=== PATIENT | male | born 1940 | race Caucasian/White ===

== ENCOUNTER → 2019-09-18 12:19 | Outpatient (BNVA) | payer MEDICARE, SELFPAY | PROVIDERS: Family Provider Nurse Practitioner Family; PCP Nurse Practitioner Family; Visit Provider Nurse Practitioner Family | DX: E11.9 Type 2 diabetes mellitus without complications (principal) | CPT/HCPCS: 80053; 80061; 83036; 84443; 85025 ==

== ENCOUNTER → 2020-03-07 10:28 | Outpatient (BNVA) | payer MEDICARE, SELFPAY | PROVIDERS: Family Provider Nurse Practitioner Family; PCP Nurse Practitioner Family; Visit Provider Nurse Practitioner Family | DX: E11.9 Type 2 diabetes mellitus without complications (principal); N40.1 Benign prostatic hyperplasia with lower urinary tract symptoms; R07.9 Chest pain, unspecified; Z12.5 Encounter for screening for malignant neoplasm of prostate | CPT/HCPCS: 80053; 80061; 81000; 82043; 83036; 85025; G0103 ==

== ENCOUNTER 2020-04-14 09:13 | Outpatient (CLI) | payer MEDICARE, SELFPAY ==
--- NOTE | 2020-04-14 10:04 | ECG_ITS ---
[facility] Test Date: 2020-04-14 Pat Name: Jorge Moore Department: Room: Gender: Male Rail Track Layer: : 1940 Requested By: Akosua Kennedy Order Number: [id number] Malone MD: Akosua Kennedy M.D. Interpretive Statements NAME OF STUDY: LEXISCAN SESTAMIBI STRESS TEST INDICATION: Chest Pain PROCEDURE: At the baseline, the blood pressure was 165/88 mmHg, oxygen saturation 98% with a heart rate of 83 bpm. The electrocardiogram showed normal sinus rhythm, normal axis with nonspecific ST depression and T wave inversion in lead II, 3, aVF V3 to V6. The Lexiscan was infused over a period of 20 seconds. A total of 0.4 milligrams of Lexiscan was infused. The stress phase was continued for a total of 5 minutes. Heart rate at the end of the stress phase was 97 bpm, oxygen saturation 96% with a blood pressure of 155/63 mmHg. The EKG at the peak infusion revealed no significant EKG changes. Sestamibi was injected 20 seconds after the Lexiscan infusion. Blood pressure at the end of the recovery phase was 155/65 mmHg, oxygen saturation 97% with a heart rate of 98 beats per minute. CONCLUSION: 1. Equivocal EKG changes with LexiScan infusion given baseline ST-T wave changes. 2. No LexiScan induced chest pain or cardiac arrhythmia. 3. Normal blood pressure and heart rate response. 4. Sestamibi/sestamibi perfusion scan pending; see separate report. Electronically Signed On 04-15-2020 14:06:24 TIP STRETCHER by Akosua Kennedy M.D. [id number]
--- NOTE | 2020-04-14 10:04 | NMCV_ITS ---
NM tammy perf SPECT r/s* [id number] Jorge Moore Age: 79 Gender: M : 1940 Exam Date: 04/14/2020 10:04 Ordering Phys: Akosua Kennedy MD ([email or web address]) Technologist: SHELBY Moody Exam Location: [facility] Indications: Chest pain STRESS TEST Please see separate stress test report in [facility] for full findings IMAGE PROTOCOL Rest/Stress 1 Lexiscan Day Radiopharmaceutical Dose (mCi) Administration Site Administered by Rest: Tc-99m 10.9 IV SHELBY Moody Sestamibi Stress:Tc-99m 32.8 IV SHELBY Moody Sestamibi Rest: 14-Apr-2020 60 Discovery 630 Stress: 14-Apr-2020 45 Discovery 630 0.4mg Lexiscan. Images obtained in supine and prone position. SPECT RESULTS Technical Quality: Good Raw Data Analysis: Normal Image Corrections: No attenuation or motion correction applied Summed Stress Score: 0 Summed Rest Score: 0 Summed Difference Score: 0 PERFUSION FINDINGS Small sized perfusion abnormality of mild severity of basal inferior and basal infero-septal gallo on stress images. FUNCTIONAL RESULTS (calculated via Gated SPECT) Stress Image LV EF (%): 84 Stress EDV (mL):49 TID: 0.91 Stress ESV (mL):8 FUNCTIONAL FINDINGS: The left ventricle is normal in size. Transient Ischemia Dilatation of 0.91. There is normal left ventricular systolic function. The left ventricular ejection fraction is normal with a value of 84%. There is hyperdynamic left ventricular global systolic function. There is hyperdynamic left ventricular wall thickening. IMPRESSIONS 1. Small sized reversible perfusion abnormality of mild severity of basal inferior and basal infero-septal gallo. 2. This likely represent attenuation artifact, however small area of ischemia in right coronary artery territory cannot be completely excluded. Clinical correlation is advised. 3. Overall left ventricular systolic function is normal without regional wall motion abnormalities. 4. The left ventricular ejection fraction is normal with a value of 84%. 5. No prior similar studies to compare. Akosua Kennedy MD (Electronically Signed) Final Date: 17 April 2020 20:43 S
[2020-04-14 10:05] VITALS: BMI 23.8
[2020-04-14] MEDS: regadenoson 0.4 Mg/5 ml Syringe IVP (11:56)
[2020-04-14 12:59] VITALS: BP 151/64; PULSE 99
--- NOTE | 2020-04-14 14:15 | USCV_ITS ---
Jorge Moore Age: 79 Gender: M : 1940 Exam Date: 04/14/2020 10:02 Ordering Phys: Akosua Knenedy MD ([email or web address]) Technologist: Alejandro Lewis Exam Location: [facility] [place] Indication: STENOSIS Risk Factors: Previous Vascular Surgery: Right Brachial BP: / Left Brachial BP: / Right Left Velocity (cm/s) Spectral Plaque Velocity (cm/s) Spectral Plaque Syst/Diast Broadening Syst/Diast Broadening 98.10/ 14.30 Prox CCA 77.20 / 15.40 87.10/ 17.60 Mid CCA 72.80 / 14.30 82.40/ 20.60 Hetro Distal CCA 82.70 / 18.70 Hetro 61.80/ 11.60 Hetro Prox ICA 88.20 / 21.00 Hetro 68.10/ 15.20 Mid ICA 79.80 / 18.50 86.00/ 27.80 Distal ICA 79.80 / 21.00 74.30 ECA 144.40 0.88 ICA/CCA 1.07 Antegrade Vertebral Antegrade 42.10/ 9.00 cm/s 60.50/ 10.10 cm/s Tri Subclavian Tri 45.70 91.60 FINDINGS Mild to moderate heterogeneous plaques at the bifurcations and proximal internal carotid arteries bilaterally Intimal thickening in the common carotid arteries bilaterally. Antegrade flow in the vertebral arteries bilaterally. Normal Doppler flow velocity in the right external carotid artery. Elevated Doppler flow velocity in the left external carotid artery CONCLUSIONS Mild to moderate heterogeneous plaques at the bifurcations and proximal internal carotid arteries bilaterally suggesting 16 to 49% gnosis. Elevated Doppler flow velocity in the left external carotid artery may suggest hemodynamically significant stenosis. Compared to the study from 09/08/2012, there may not be a significant change Dr Debi Vaughn MD [facility] (Electronically Signed) Final Date: 15 April 2020 14:02 S
== END 2020-04-14 09:14 | disposition home or self-care (01) ==
LOC: CDL 09:20
PROVIDERS: PCP Nurse Practitioner Family; Visit Provider Nurse Practitioner Family
DX: R07.9 Chest pain, unspecified (principal); I25.10 Atherosclerotic heart disease of native coronary artery without angina pectoris; I65.23 Occlusion and stenosis of bilateral carotid arteries
CPT/HCPCS: 78452; 93017; 93880; A9500; J2785

== ENCOUNTER → 2020-04-19 12:02 | Outpatient (BNVA) | payer MEDICARE, SELFPAY | PROVIDERS: PCP Nurse Practitioner Family; Visit Provider Nurse Practitioner Family | DX: R79.89 Other specified abnormal findings of blood chemistry (principal) | CPT/HCPCS: 80053; 86705; 86706; 86709; 86803; 87340 ==

== ENCOUNTER 2020-04-21 08:04 | Outpatient (CLI) | payer MEDICARE, SELFPAY ==
--- NOTE | 2020-04-21 08:45 | US_ITS ---
WS: [id number] RIGHT UPPER QUADRANT ULTRASOUND HISTORY: R79.89 - Other specified abnormal findings of blood chemistry COMPARISON: None available. Liver: 16.8 cm in length. Normal size liver. No bile duct dilatation or mass. Gallbladder: Prior cholecystectomy. CBD: 0.7 cm Pancreas: Not visualized. Right kidney: 10.2 cm in length. Normal size and echogenicity. No hydronephrosis or mass. Aorta and IVC: Unremarkable abdominal aorta and IVC. No ascites. US/US liver [id number] IMPRESSION: 1. Prior cholecystectomy. 2. No bile duct dilatation. 3. Pancreas not visualized.
== END 2020-04-21 08:05 | disposition home or self-care (01) ==
LOC: RAD 08:09
PROVIDERS: PCP Nurse Practitioner Family; Visit Provider Nurse Practitioner Family
DX: R79.89 Other specified abnormal findings of blood chemistry (principal); Z90.49 Acquired absence of other specified parts of digestive tract
CPT/HCPCS: 76705

== ENCOUNTER → 2020-04-22 08:32 | Outpatient (BNVA) | payer MEDICARE, SELFPAY | PROVIDERS: PCP Nurse Practitioner Family; Visit Provider Nurse Practitioner Family | DX: R79.89 Other specified abnormal findings of blood chemistry (principal); E11.9 Type 2 diabetes mellitus without complications | CPT/HCPCS: 80053; 80061; 82550; 82728; 82977; 83540; 84466; 86038 ==

== ENCOUNTER → 2020-05-06 08:23 | Outpatient (BNVA) | payer MEDICARE, SELFPAY | PROVIDERS: PCP Nurse Practitioner Family; Visit Provider Nurse Practitioner Family | DX: R79.89 Other specified abnormal findings of blood chemistry (principal) | CPT/HCPCS: 80053; 86618; 86666; 86757 ==

== ENCOUNTER → 2020-06-09 11:07 | Outpatient (BNVA) | payer MEDICARE, SELFPAY | PROVIDERS: PCP Nurse Practitioner Family; Visit Provider Nurse Practitioner Family | DX: R79.89 Other specified abnormal findings of blood chemistry (principal) | CPT/HCPCS: 80076 ==

== ENCOUNTER → 2020-07-28 11:27 | Outpatient (BNVA) | payer MEDICARE, SELFPAY | PROVIDERS: PCP Nurse Practitioner Family; Visit Provider Nurse Practitioner Family | DX: R79.89 Other specified abnormal findings of blood chemistry (principal) | CPT/HCPCS: 80053 ==

== ENCOUNTER → 2020-08-10 12:14 | Outpatient (BNVA) | payer MEDICARE, SELFPAY | PROVIDERS: PCP Nurse Practitioner Family; Visit Provider Nurse Practitioner Family | DX: E11.9 Type 2 diabetes mellitus without complications (principal); R60.9 Edema, unspecified; K59.00 Constipation, unspecified | CPT/HCPCS: 80053; 80061; 83036; 84443; 85025 ==

== ENCOUNTER → 2021-02-01 10:52 | Outpatient (BNVA) | payer MEDICARE, SELFPAY | PROVIDERS: PCP Nurse Practitioner Family; Visit Provider Nurse Practitioner Family | DX: E11.9 Type 2 diabetes mellitus without complications (principal); I10 Essential (primary) hypertension; I25.10 Atherosclerotic heart disease of native coronary artery without angina pectoris; Z95.1 Presence of aortocoronary bypass graft; Z79.899 Other long term (current) drug therapy | CPT/HCPCS: 80053; 80061; 82607; 83036; 84443; 85025 ==

== ENCOUNTER → 2021-03-22 10:32 | Outpatient (BNVA) | payer MEDICARE, SELFPAY | PROVIDERS: PCP Nurse Practitioner Family; Visit Provider Nurse Practitioner Family | DX: E87.5 Hyperkalemia (principal) | CPT/HCPCS: 80048 ==

== ENCOUNTER → 2021-04-06 10:52 | Outpatient (BNVA) | payer MEDICARE, SELFPAY | PROVIDERS: PCP Nurse Practitioner Family; Visit Provider Nurse Practitioner Family | DX: M25.561 Pain in right knee (principal); M25.562 Pain in left knee | CPT/HCPCS: 73562 ==

== ENCOUNTER → 2021-08-14 08:55 | Outpatient (BNVA) | payer MEDICARE, SELFPAY | PROVIDERS: PCP Nurse Practitioner Family; Visit Provider Nurse Practitioner Family | DX: I25.10 Atherosclerotic heart disease of native coronary artery without angina pectoris (principal); R07.9 Chest pain, unspecified; I65.29 Occlusion and stenosis of unspecified carotid artery | CPT/HCPCS: 99214 ==

== ENCOUNTER → 2021-09-13 11:42 | Outpatient (BNVA) | payer MEDICARE, SELFPAY | PROVIDERS: PCP Nurse Practitioner Family; Visit Provider Family Medicine | DX: I10 Essential (primary) hypertension (principal); E11.9 Type 2 diabetes mellitus without complications; Z12.5 Encounter for screening for malignant neoplasm of prostate; N40.1 Benign prostatic hyperplasia with lower urinary tract symptoms; K21.9 Gastro-esophageal reflux disease without esophagitis; H60.90 Unspecified otitis externa, unspecified ear | CPT/HCPCS: 80053; 80061; 83036; 84153; 84443; 85025 ==

== ENCOUNTER → 2021-09-25 08:43 | Outpatient (BNVA) | payer MEDICARE, SELFPAY | PROVIDERS: PCP Nurse Practitioner Family; Visit Provider Family Medicine | DX: R79.89 Other specified abnormal findings of blood chemistry (principal); I10 Essential (primary) hypertension | CPT/HCPCS: 84439; 84443; 84481 ==

== ENCOUNTER → 2022-02-12 12:36 | Outpatient (BNVA) | payer MEDICARE, SELFPAY | PROVIDERS: PCP Nurse Practitioner Family; Visit Provider Internal Medicine Cardiovascular Disease | DX: I65.29 Occlusion and stenosis of unspecified carotid artery (principal); Z87.891 Personal history of nicotine dependence; I10 Essential (primary) hypertension; I25.10 Atherosclerotic heart disease of native coronary artery without angina pectoris; Z95.1 Presence of aortocoronary bypass graft; E11.9 Type 2 diabetes mellitus without complications; Z79.84 Long term (current) use of oral hypoglycemic drugs | CPT/HCPCS: 99213; 99214 ==

== ENCOUNTER → 2022-04-05 09:54 | Outpatient (BNVA) | payer MEDICARE, SELFPAY | PROVIDERS: PCP Nurse Practitioner Family; Visit Provider Nurse Practitioner Family | DX: J32.9 Chronic sinusitis, unspecified (principal); R05.9 Cough, unspecified; J40 Bronchitis, not specified as acute or chronic | CPT/HCPCS: 71046 ==

== ENCOUNTER → 2022-04-09 09:40 | Outpatient (BNVA) | payer MEDICARE, SELFPAY | PROVIDERS: PCP Nurse Practitioner Family; Visit Provider Nurse Practitioner Family | DX: J32.9 Chronic sinusitis, unspecified (principal); R05.9 Cough, unspecified; I10 Essential (primary) hypertension; R91.8 Other nonspecific abnormal finding of lung field; E11.9 Type 2 diabetes mellitus without complications; R60.9 Edema, unspecified; J40 Bronchitis, not specified as acute or chronic; N40.1 Benign prostatic hyperplasia with lower urinary tract symptoms; K21.9 Gastro-esophageal reflux disease without esophagitis | CPT/HCPCS: 80053; 80061; 82607; 83036; 84443; 85025 ==

== ENCOUNTER 2022-05-21 14:17 | Outpatient (CLI) | payer MEDICARE, SELFPAY ==
--- NOTE | 2022-05-21 14:00 | CT_ITS ---
WS: [id number] CT CHEST WITH INTRAVENOUS CONTRAST HISTORY: R05.9 - Cough, unspecified TECHNIQUE: Contiguous 5 mm axial imaging performed on the thorax. Coronal and sagittal reformats are submitted. All CT scans at [facility] use at least one of these dose optimization techniques: automated exposure control; mA and/or kV adjustment per patient size (includes targeted exams where dose is matched to clinical indication); or iterative reconstruction. CONTRAST: Omnipaque 350; 95 mL IV. DLP: 607.67 mGy.cm COMPARISON: Chest radiograph 04/05/2022 Lungs and central airway: Mild centrilobular emphysema. 2 nodules in the RIGHT lower lobe seen on a p rior chest radiograph corresponds to benign calcified granulomas. Mild dependent changes also noted a t the lung bases. No suspicious mass or nodule. Pleura: Normal. No pleural effusion. Heart and pericardium: Normal size heart. No pericardial effusion. Extensive coronary artery calcific ations. Mediastinum and simone: Small mediastinal lymph nodes. RIGHT lymph node is 11 mm and indeterminate. The additional lymph nodes are smaller in size. Vessels: Mild atherosclerosis aorta. At least moderate stenosis involving the origin of the LEFT subc lavian artery. Chest wall and lower neck: Prior CABG. Upper abdomen: Small hiatal hernia. There is marked distention of the stomach with fluid and food pro ducts may be due to recent ingestion of food. Gastroparesis may appear similar. No adrenal mass. 4 mm too small to characterize hypodensity in LEFT lobe of the liver. Prior cholecystectomy. Mild physiol ogic dilatation of the common bile duct. Osseous structures: No destructive process. CT/CT chest w con* [id number] IMPRESSION: 1. Nodules in the RIGHT lower lobe identified by chest radiograph are benign c alcified granulomata. 2. No pneumonia. 3. Prior cholecystectomy. 4. Atherosclerosis aorta. 5. At least moderate stenosis involving the origin of the LEFT subclavian riana ry. 6. Marked distention of the stomach with fluid and food products. May be due t o a recent ingestion or gastroparesis may appear similar.
[2022-05-21] MEDS: iohexol 350 mg/mL 500 mL Btl (per mL) IV (15:20)
== END 2022-05-21 14:18 | disposition home or self-care (01) ==
PROVIDERS: PCP Nurse Practitioner Family; Visit Provider Nurse Practitioner Family
DX: R05.9 Cough, unspecified (principal); R91.8 Other nonspecific abnormal finding of lung field; Z90.49 Acquired absence of other specified parts of digestive tract; I70.0 Atherosclerosis of aorta; I70.8 Atherosclerosis of other arteries
CPT/HCPCS: 71260; Q9967

== ENCOUNTER → 2022-05-30 14:30 | Outpatient (BNVA) | payer MEDICARE, SELFPAY | PROVIDERS: PCP Nurse Practitioner Family; Visit Provider Orthopaedic Surgery | DX: M17.11 Unilateral primary osteoarthritis, right knee (principal) | CPT/HCPCS: 99213 ==

== ENCOUNTER 2022-06-25 08:56 | Outpatient (CLI) | payer MEDICARE, SELFPAY ==
[2022-06-25 09:28] VITALS: BMI 23.6
--- NOTE | 2022-06-25 09:29 | ECG_ITS ---
[facility] Test Date: 2022-06-25 Pat Name: Jorge Moore Department: Room: Gender: Male Cook Relief: : 1940 Requested By: Austin Fuchs Order Number: [id number] Malone MD: Akosua Kennedy M.D. Interpretive Statements NAME OF STUDY: LEXISCAN SESTAMIBI STRESS TEST INDICATION: Knee preop, hx of CAD PROCEDURE: At the baseline, the blood pressure was 142/71 mm Hg with a heart rate of 76 bpm. The electrocardiogram showed sinus rhythm, normal axis with normal ST and T's. ??? The Lexiscan was infused over a period of 20 seconds. A total of 0.4 milligrams of Lexiscan was infused. The stress phase was continued for a total of 5 minutes. Heart rate at the end of the stress phase was 94 bpm with a blood pressure of 118/57 mm Hg. The EKG at the peak infusion revealed sinus rhythm with no significant ST and T wave changes. ??? Sestamibi was injected 20 seconds after the Lexiscan infusion. ??? Blood pressure at the end of the recovery phase was 131/65 mm Hg with a heart rate of 88 beats per minute. ??? CONCLUSION: 1. No significant EKG changes with the LexiScan infusion. 2. No LexiScan induced chest pain or cardiac arrhythmia. 3. Normal blood pressure and heart rate response. 4. Sestamibi/sestamibi perfusion scan pending; see separate report. Electronically Signed On 07-04-2022 2:20:46 HEAD BUYER TOBACCO by Akosua Kennedy M.D. [email or web address]
--- NOTE | 2022-06-25 09:30 | NMCV_ITS ---
NM tammy perf SPECT r/s* [id number] Jorge Moore Age: 82 Gender: M : 1940 Exam Date: 06/25/2022 09:30 Ordering Phys: Austin Fuchs MD ([email or web address]) Technologist: SHELBY Perkins Exam Location: [facility] Indications: ATHEROSCLEROTIC HEART DISEASE OF [place] CORONARY ARTERY STRESS TEST Please see separate stress test report in [facility] for full findings IMAGE PROTOCOL Rest/Stress 1 Lexiscan Day Radiopharmaceutical Dose (mCi) Administration Site Administered by Rest: Tc-99m 10.4 IV SHELBY Moody Sestamibi Stress:Tc-99m 32.9 IV SHELBY Moody Sestamibi Rest: 25-Jun-2022 60 Discovery 630 Stress: 25-Jun-2022 30 Discovery 630 0.4mg Lexiscan. Images obtained in supine and prone position. SPECT RESULTS Technical Quality: Excellent Raw Data Analysis: Normal Image Corrections: No attenuation or motion correction applied Summed Stress Score: 0 Summed Rest Score: 4 Summed Difference Score: 0 PERFUSION FINDINGS SPECT images demonstrate homogeneous tracer distribution throughout the myocardium. FUNCTIONAL RESULTS (calculated via Gated SPECT) Stress Image LV EF (%): 92 Stress EDV (mL):60 TID: 0.7 Stress ESV (mL):5 FUNCTIONAL FINDINGS: The left ventricle is normal in size. Transient Ischemia Dilatation of 0.7. The left ventricular ejection fraction is hyperdynamic with a value of 92%. There is hyperdynamic left ventricular wall thickening. IMPRESSIONS 1. Myocardial perfusion imaging is normal. 2. Overall left ventricular systolic function is normal without regional wall motion abnormalities, LVEF=92%. 3. EKG portion of the study will be reported separately. 4. Scan indicates low risk for cardiac events. Akosua Kennedy MD (Electronically Signed) Final Date: 30 June 2022 11:46 S
[2022-06-25] MEDS: regadenoson 0.4 Mg/5 ml Syringe IVP (11:02)
== END 2022-06-25 08:57 | disposition home or self-care (01) ==
PROVIDERS: PCP Nurse Practitioner Family; Visit Provider Internal Medicine Cardiovascular Disease
DX: Z01.818 Encounter for other preprocedural examination (principal); I25.10 Atherosclerotic heart disease of native coronary artery without angina pectoris
CPT/HCPCS: 36415; 78452; 96374; A9500; J2785

== ENCOUNTER 2022-07-18 07:25 | Outpatient (CLI) | payer MEDICARE, SELFPAY ==
--- NOTE | 2022-07-18 | CT_ITS ---
WS: [id number] CT RIGHT KNEE, NONCONTRAST TECHNIQUE: Noncontrast CT of the RIGHT knee to include the RIGHT hip and ankle. JERRY CLINICAL INFORMATION: KNEE PAIN COMPARISON: None. DLP: All CT scans at [facility] use at least one of these dose optimization techniques: automated e xposure control; mA and/or kV adjustment per patient size (includes targeted exams where dose is matc hed to clinical indication); or iterative reconstruction. FINDINGS: Moderate degenerative narrowing both hips. Degenerative narrowing medial joint compartment with bone- on-bone articulation. Hypertrophic changes along the joint line. Chondrocalcinosis. Hypertrophic cobos lla. Vascular calcification. Osteopenia. Small to moderate suprapatellar effusion. Partially visualized sigmoid diverticulosis. Enlarged prostate measuring 5.4 cm. Recommend correlatio n PSA. Sclerotic lesion RIGHT ilium likely benign bone island. Incidental fat-containing inguinal her nias. CT/CT knee RT JERRY IMPRESSION: Images obtained for preoperative purposes.
--- NOTE | 2022-07-18 08:00 | USCV_ITS ---
Jorge Moore Age: 82 Gender: M : 1940 Exam Date: 07/18/2022 07:44 Ordering Phys: Austin Fuchs MD ([email or web address]) Technologist: Usama Moyer [place] [facility] [place]: [place] Risk Factors: Previous Vascular Surgery: Right Brachial BP: / Left Brachial BP: / Right Left Velocity (cm/s) Spectral Plaque Velocity (cm/s) Spectral Plaque Syst/Diast Broadening Syst/Diast Broadening 123.50/20.90 Prox CCA 159.10/ 23.70 73.90/ 12.10 Mid CCA 103.90/ 21.00 100.30/19.70 Distal CCA 123.60/ 17.10 112.50/19.80 Prox ICA 105.20/ 30.20 112.50/35.30 Mid ICA 85.40 / 26.50 94.80/ 25.40 Distal ICA 70.10 / 20.50 133.40 ECA 107.80 1.52 ICA/CCA 0.82 Antegrade Vertebral Antegrade 91.50/ 16.50 cm/s 59.00/ 13.70 cm/s Tri Subclavian Tri 109.2 95.70 0 FINDINGS Comparison:. 04/14/20 No significant elevation of systolic or diastolic velocities. Mixture of calcified and noncalcified plaque in the bifurcations. Antegrade vertebral arteries. CONCLUSIONS Bilateral ICA stenosis less than 50%. Mild carotid atherosclerosis. No interval change in stenosis since prior exam. Dr. Yvette Burks DO (Electronically Signed) Final Date: 18 July 2022 11:33 S
== END 2022-07-18 07:26 | disposition home or self-care (01) ==
LOC: RAD 07:38
PROVIDERS: PCP Nurse Practitioner Family; Visit Provider Internal Medicine Cardiovascular Disease
DX: I65.29 Occlusion and stenosis of unspecified carotid artery (principal)
CPT/HCPCS: 73700; 93880

== ENCOUNTER 2022-07-30 09:56 | Observation (INO) | payer MEDICARE, SELFPAY ==
[2022-07-23 13:23] VITALS: BMI 24.3
--- NOTE | 2022-07-23 13:49 | P.ANESASSM_ITS ---
Pre-Anesthetic Assessment Height/Weight: Height 1.75 m Weight 74.843 kg Operation Date: 07/30/22 10:00 Proposed Procedures p right total knee makoplasty/ 36793,M17.11(Right) - Hema Mccall MD Familial anesthetic complications: None Social No alcohol and No tobacco former smoker Exam alert, oriented x 3, clear to auscultation bilaterally and regular rate & rhythm Airway Mallampati: Class II Dentition: partials Pulmonary None reported CV/HEM Coronary Artery Disease (cabg (25+ years ago) - no cp, no SOB, no syncope. Negative stress test 06/25), Hypertension and Myocardial Infarction None reported Hepatic None reported GI Gastroesophageal Reflux Disease and Peptic Ulcer Disease Metabolic Diabetes Mellitus Musc/skel Lower Back Pain and Osteoarthritis/DJD Neuropsych None reported carotid stenosis < 50% Anesthetic Plan ASA status: 3 Anesthesia: Regional (specify below) (spinal + Adductor) Risk of > 500 ml blood loss (7ml/kg in children): No Medications/Allergies Home Medications Medication Instructions Recorded Confirmed Last Taken Type nitroglycerin 0.4 mg sublingual 0.4 mg sublingual Q5M PRN chest 03/21/20 07/23/22 Unknown Rx tablet pain #25 tabs sucralfate 1 gram tablet (Carafate) 1 g PO .COMPLEX #120 tabs 12/20/21 07/23/22 07/23/22 Rx glucosamine HCl 500 mg tablet 500 mg PO BID 02/12/22 07/23/22 07/23/22 History celecoxib 100 mg capsule 100 mg PO DAILY #90 caps 04/09/22 07/23/22 07/23/22 Rx lisinopril 2.5 mg tablet 2.5 mg PO QDAY 90 days #90 tabs 04/09/22 07/23/22 07/23/22 Rx metformin 500 mg tablet,extended 500 mg PO BID #180 tabs 04/09/22 07/23/22 07/23/22 Rx release 24 hr omeprazole 20 mg capsule,delayed 20 mg PO BID #180 caps 04/09/22 07/23/22 07/23/22 Rx release tamsulosin 0.4 mg capsule (Flomax) 0.4 mg PO DAILY #90 caps 04/09/22 07/23/22 07/23/22 Rx triamterene 37.5 1 tab PO QAM #90 tabs 04/09/22 07/23/22 07/23/22 Rx mg-hydrochlorothiazide 25 mg tablet dutasteride 0.5 mg capsule 0.5 mg PO BID 07/23/22 07/23/22 07/23/22 History (Avodart) psyllium husk (with sugar) 3.4 1 tbsp PO DAILY PRN Constipation 07/23/22 07/23/22 Unknown History gram/12 gram oral powder (Metamucil (with sugar)) Allergies Allergy/AdvReac Type Severity Reaction Status Date / Time pravastatin [From Pravachol] Allergy Unknown Verified 05/30/22 15:18 [facility] Anesthesia Medical History ASHD (arteriosclerotic heart disease) BPH (benign prostatic hyperplasia) Carotid stenosis Diabetes type 2, controlled HTN (hypertension) Surgical History History of coronary artery bypass graft History of laparoscopic cholecystectomy Social History Smoking and tobacco status: former smoker Quit status (tobacco): has quit using tobacco Second hand smoke exposure: No Alcohol intake: never Household members: spouse Marital status: service: No Current occupational status: retired History of recent travel: No Current gender identity: Male Special olimpia needs: No Agree to transfusion: Yes Data Anesthesia 07/23/22 13:35 07/23/22 13:35 Cardiac Studies: Sestamibi Stress Test (Cardiology) 06/25
[2022-07-23 13:51] LABS: Basophils # 0.1 10^3/uL (0.0-0.1); Basophils % 0.8 %; Eosinophils # 0.4 10^3/uL (0.0-0.8); Eosinophils % 5.2 %; Hematocrit 41.5 % (42.0-52.0); Hemoglobin 13.8 g/dL (11.7-16.6); Lymphocytes # 2.1 10^3/uL (0.8-4.8); Lymphocytes % 28.6 %; Mean Corpuscular HGB Conc 33.3 g/dL (30.0-36.0); Mean Corpuscular Volume 90.2 fl (80-94); Mean Platelet Volume 9.7 fL (7.4-10.4); Monocytes # 0.7 10^3/uL (0.2-0.9); Neutrophils % 56.3 %; Nucleated Red Blood Cells % 0 %; Platelet Count 209 10^3/cmm (130-400); Red Cell Distribution Width 11.9 % (12.1-15.1); White Blood Count 7.5 10^3/uL (4.0-10.0)
[2022-07-23 14:08] LABS: Anion Gap 13.5 (5-19); Blood Urea Nitrogen 12 mg/dL (8-23); Calcium 8.9 mg/dL (8.5-10.5); Carbon Dioxide 28 mmol/L (22-29); Chloride 102 mmol/L (98-107); Glucose 125 mg/dL (65-115); Osmolality Calculated 289 mOsm/kg (285-295); Potassium 4.5 mmol/L (3.5-5.1); Sodium 139 mmol/L (136-145)
[2022-07-30] VITALS (16 sets, daily range): BP systolic 102–151; BP diastolic 50–77; PULSE 62–103; RESP 11–18; TEMP 36.1–36.7; O2SAT 92–96
[2022-07-30] MEDS: CELEcoxib 200 mg Capsule 400 MG PO (06:28)
[2022-07-30] MEDS: acetaminophen 500 mg Tablet 1000 MG PO ×3 (06:29→22:55)
[2022-07-30] MEDS: sodium chloride 0.9% 1,000 ML 30 ML IV (06:29)
[2022-07-30] MEDS: oxyCODONE 20 mg ER (12 HR) Tablet PO (06:29)
[2022-07-30 06:41] LABS: Glucose Point of Care 137 mg/dL (70-110)
--- NOTE | 2022-07-30 07:05 | W.PM.OPSFHP ---
Same Day Surgery H&P Indication for Procedure/HPI DATE OF PROCEDURE: July 30, 2022 CHIEF COMPLAINT/INDICATIONFOR SURGICAL PROCEDURE: Osteoarthritis right knee here for right total knee arthroplasty PREOP DIAGNOSIS: Osteoarthritis right knee PLANNED PROCEDURE: Operation Date: 07/30/22 07:00 Proposed Procedures p right total knee makoplasty/ 48994,M17.11(Right) - Hema Mccall MD 82 year old male patient, he is here today for right total knee arthroplasty. His last cortisone injection.DOLI:04/25/21 He states that his last injection gave him relief for a bout a week.? Scribes severe pain in the medial aspect of the right more than the left knee.? 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 He is taking Celebrex which is no longer giving him benefit.? He described feelings of instability in his knees and states he has not fallen but his knees frequently feels unstable. A cardiac stress test was obtained on 06/25/2022 and he has been cleared for surgery. Medications/Allergies* Home Medications Medication Instructions Recorded Confirmed Type glucosamine HCl 500 mg tablet 500 mg PO BID 02/12/22 07/23/22 History dutasteride 0.5 mg capsule 0.5 mg PO BID 07/23/22 07/23/22 History (Avodart) psyllium husk (with sugar) 3.4 1 tbsp PO DAILY PRN Constipation 07/23/22 07/23/22 History gram/12 gram oral powder (Metamucil (with sugar)) Allergies/Adverse Reactions Allergy/AdvReac Type Severity Reaction Status Date / Time pravastatin [From Pravachol] Allergy Unknown Verified 05/30/22 15:18 Current Medications: Generic Name Dose Route Start Last Admin Trade Name Freq PRN Reason Stop Dose Admin Sodium Chloride 1,000 mls @ 30 mls/hr 07/30/22 06:00 07/30/22 06:29 Sodium Chloride 0.9% IV 07/31/22 05:59 30 mls/hr .Q24H KAUR Administration Pertinent History/Comorbid Conditions* Medical History (Updated 05/30/22 @ 15:42 by Hema Mccall MD) ASHD (arteriosclerotic heart disease) BPH (benign prostatic hyperplasia) Carotid stenosis Diabetes type 2, controlled HTN (hypertension) Surgical History (Updated 02/29/20 @ 21:09 by CRYSTAL Toro) History of coronary artery bypass graft History of laparoscopic cholecystectomy Social History Smoking and tobacco status: former smoker Quit status (tobacco): has quit using tobacco Second hand smoke exposure: No Alcohol intake: never Household members: spouse Marital status: service: No Current occupational status: retired History of recent travel: No Current gender identity: Male Special olimpia needs: No Agree to transfusion: Yes Pertinent Exam Findings alert, oriented x 3, clear to auscultation bilaterally, regular rate & rhythm and operative site marked Right knee Tender over medial joint line. Motion is from 10 to 100 degrees. Palpable right dorsalis pedis pulse. [place] extend right toes and ankle without any motor deficits Sensation intact to light touch in the right Recommendations Surgery/Procedure today Coding Level of Care Code Acute Code for Celeg Fwd
[2022-07-30] MEDS: ceFAZolin 2,000 MG in sodium chloride 0.9% (plus) 50 ML 100 MG IV ×3 (07:10→22:56)
[2022-07-30] MEDS: tranexamic acid 1,000 mg/10mL SDV 1000 MG IV (07:40)
--- NOTE | 2022-07-30 08:00 | ANES.PAUD2 ---
Pre-Anesthetic Update Pre-Anesthetic Assessment: Date of Surgery/Procedure: 07/30/22 Preop Diagnosis: Osteoarthritis right knee Proposed Procedure: Operation Date: 07/30/22 07:00 Proposed Procedures p right total knee makoplasty/ 62441,M17.11(Right) - Hema Mccall MD Any changes to Pre-Anesthetic Assessment?: No Last Intake: Intake Last Liquid Date 07/29/22 Last Liquid Time 23:55 Last Solid Date 07/29/22 Last Solid Time 19:00 Vitals: Temperature 97.8 F 07/30/22 06:13 Temperature Source Temporal Artery S can 07/30/22 06:13 Pulse Rate 85 07/30/22 06:13 Respiratory Rate 18 07/30/22 06:13 Blood Pressure 121/67 07/30/22 06:13 Blood Pressure [place] n 85 07/30/22 06:13 Pulse Oximetry 95 07/30/22 06:13 Oxygen Delivery Me thod 07/30/22 06:15 Exam: Pre-Anes Outpt Exam: alert, oriented x 3, clear to auscultation bilaterally and regular rate & rhythm Cardiac Studies: Sestamibi Stress Test (Cardiology) 06/25/22 Anesthesia Procedures Nerve Block: Nerve Block 1: Main Anesthesia: spinal anesthesia block Time Out Performed: Yes Consent: requested by attending/covering physician, from patient, risks and benefits reviewed and patient agrees to proceed Nerve block location: adductor canal (right) Anesthesia monitors applied: pulse oximetry, EKG, BP cuff and oxygen Nerve block position: supine Anesthetic Used: ropivicaine 0.5% Amount of anesthesia used (mL): 20 Ultrasound used to: recognize landmarks Nerve Stimulator Used?: No Interscalene/Femoral BLK: 4 stimuplex 21 g needle used for position and inplane approach Injection: neg aspiration of heme Patient Tolerated Procedure: well Complications: none
[2022-07-30] MEDS: tranexamic acid 1,000 mg/10mL SDV 1000 MG XX (08:02)
[2022-07-30] MEDS: EPINEPHrine 1 mg/mL INJ XX (08:02)
[2022-07-30] MEDS: ketorolac 30 mg/mL INJ XX (08:02)
[2022-07-30] MEDS: sodium chloride 0.9% 100 mL Bag XX (08:05)
--- NOTE | 2022-07-30 09:17 | XR_ITS ---
WS: [id number] Right knee, AP and lateral views, 07/30/2022 Clinical Data: Right Total Knee arthroplasty Comparison: Right knee, 04/06/2021 Findings: There is a right knee arthroplasty. No loosening or periprosthetic fractures are seen. There are smal l bony defects in the distal right femur and proximal right tibia from orthopedic intervention. There are medial clips in the proximal subcutaneous tissue of the right leg from vascular surgery. There i s vascular calcification. There is air in the joint space from recent surgery XR/XR knee RT 1-2V [id number] Impression: Right knee arthroplasty.
--- NOTE | 2022-07-30 09:17 | PM.OP ---
Operative Report Date of procedure: July 30, 2022 Pre-op diagnosis: Preop Diagnosis Osteoarthritis right knee Post-op diagnosis: same Post-op diagnosis: Same Post-op findings: Same Procedure done: [] total knee arthroplasty Implants: Ghada Triathalon total knee arthroplasty components were used includin) Size 5 triathalon cruciate retaining femoral component 2) Size 6 Tritanium tibial component 3) Size 6/9 mm thickness CS tibial bearing insert Pathology: none sent Surgeon: Hema Mccall Senior Communications Specialist: Oscar Natarajan Senior Communications Specialist: The nurse practitioner the nurse practitioner assisted with critical portions of the case including positioning, draping, exposure, component implantation, closure and dressing application and is present through the entirety of the case. Anesthesia: Nerve Block (Spinal, adductor canal block) Estimated blood loss (mL): 100 Findings: The patient eburnated bone over the medial femoral condyle andmedial tibial plateau. There was minimal patellar chondromalacia in the patella articulated well with the femoral component. Condition: stable Disposition: PACU Procedure: The patient was taken to the operating room. Patient was given 1 g of tranexamic acid and 2 g of Ancef. The above anesthesia provided by the anesthesia service. A timeout was performed. The patient was prepped and draped in the usual fashion with the lower extremity exposed. A anterior incision was made, midline, from a point proximal to the patella to the distal tibial tubercle. The knee was entered through a medial parapatellar approach. The patella could be displaced laterally and the knee flexed. The patellar fat pad was resected to provide better visibility. Retractors were placed medially and laterally adjacent to the tibial plateau. At a point approximately 8 cm above the patella, 2 small incisions were made with a scalpel blade and 2 long threaded pins were placed into the anterior medial femur engaging both cortices. The femoral arrays were placed over these pins and secured. At a point 8 cm distal to the tibial tubercle. 2 shorter bicortical threaded pins were placed across the anterior medial tibia and the tibial arrays placed. A checkpoint was made just proximal and medial to the medial femoral condyle and just medial to the tibial plateau. Small osteotomes were placed in the joint in both flexion and extension to determine ligamentous laxity. The femur was externally rotated 2 degrees and placed in 2 degrees of valgus creating equal flexion and extension gaps at 19 mm.. The JERRY robot was then introduced to the field and the femur and tibia cut in accordance with our plan. he [employer] Fastseal was then used to provide hemostasis, particularly about the posterior capsule. A trial with the above components provided excellent stability and full range of motion. The femur was then prepared for the femoral pegs of the component in the tibia for the tibial component. The femur and tibia were then press-fit into place. An osteotome was used to remove the lateral 8 mm of the patella to minimize chances of later impingement. A neurectomy was accomplished circumferentially about the patella with electrocautery and lateral osteophytes removed. Surfaces were cleaned with a gentamicin solution. The femur and tibia were then press-fit into place. The posterior capsule and collateral ligaments were then injected with a solution of 100 mL of 0.2% ropivacaine, 1 mL of a 1:1000 epinephrine solution, 30 mg of Toradol, and 1 g of tranexamic acid. Final polyethylene component was then snapped into place into the tibia. The extensor retinaculum was closed with a running 1 Stratafix interrupted 1 Ethibond. The subcutaneous tissues were closed with 2-0 Vicryl and the skin was closed with a running 4-0 Stratafix. The wound was covered with a Dermabond Prineo dressing. It was covered with 4xrs and a compressive Tubigauze was applied. The patient was taken to recovery room in stable condition.
[2022-07-30] MEDS: ondansetron 2 mg/ML SDV 2 mL 4 MG IVP ×2 (11:18→11:33)
--- NOTE | 2022-07-30 15:20 | ANE.PACU2 ---
Inpatient post-anesthesia follow up: Airway intact: Yes Vital signs: Temperature 97.2 F Pulse Rate 70 Respiratory Rate 16 Blood Pressure 139/72 Pulse Oximetry 95 Oxygen Delivery Me thod Room Air Oxygen Flow Rate Fraction of Inspir ed Oxygen Hydration adequate: Yes Nausea and vomiting: No Pain level: 1 Mental status: Baseline
[2022-07-30] MEDS: pantoprazole DR 40 mg Tablet PO (17:11)
[2022-07-30] MEDS: dutasteride 0.5 mg Capsule PO (17:11)
[2022-07-30] MEDS: CELEcoxib 200 mg Capsule PO (17:11)
[2022-07-30] MEDS: sucralfate 1 gm Tablet PO ×2 (17:11→21:32)
[2022-07-30] MEDS: sennosides-docusate Tablet 2 TAB PO (17:11)
[2022-07-30] MEDS: insulin lispro 100 unit/1 mL SUBCUT (17:25)
[2022-07-30 17:30] LABS: Glucose Point of Care 154 mg/dL (70-110)
[2022-07-30 21:39] LABS: Glucose Point of Care 146 mg/dL (70-110)
[2022-07-31 04:36] VITALS: BP 121/63; PULSE 72; TEMP 36.7
[2022-07-31 04:45] VITALS: RESP 18
[2022-07-31] MEDS: oxyCODONE 5 mg IR Tab/Cap PO (04:45)
[2022-07-31 04:50] LABS: Hemoglobin 11.4 g/dL (11.7-16.6)
[2022-07-31] MEDS: ceFAZolin 2,000 MG in sodium chloride 0.9% (plus) 50 ML 100 MG IV (06:18)
[2022-07-31] MEDS: CELEcoxib 200 mg Capsule PO (06:18)
[2022-07-31] MEDS: acetaminophen 500 mg Tablet 1000 MG PO (06:18)
[2022-07-31 07:49] LABS: Glucose Point of Care 124 mg/dL (70-110)
[2022-07-31] MEDS: dutasteride 0.5 mg Capsule PO (09:16)
[2022-07-31] MEDS: tamsulosin 0.4 mg Capsule PO (09:16)
[2022-07-31] MEDS: sennosides-docusate Tablet 2 TAB PO (09:16)
[2022-07-31] MEDS: sucralfate 1 gm Tablet PO (09:16)
[2022-07-31] MEDS: pantoprazole DR 40 mg Tablet PO (09:16)
[2022-07-31] MEDS: lisinopril 2.5 mg Tablet PO (09:16)
--- NOTE | 2022-07-31 09:23 | P.DS_ITS ---
Discharge Providers Date of Admission: 07/30/22 09:56 Date of Discharge: July 31, 2022 Attending Provider at Admission: Hema Cobian MD Attending Provider at Discharge: Hema Cobian MD Primary Care Provider: CRYSTAL Toro Reason for Visit Reason for Visit: M17.11 Brief History: 82-year-old male with progressive right knee pain attributable to osteoarthritis. Failed medical management. Admitted for elective right total knee [facility] Hospital Course Hospital Course The patient tolerated surgery well. They remained hemodynamically stable. They was begun on aspirin and foot pumps for DVT prophylaxis. The patient was mobilized with therapy beginning the day of surgery and by the first post operative day independent with the walker. As the pain was adequately controlled and they were fully mobile they were discharged home. Physical Exam Narrative: On the day of discharge the knee incision was clean. They had no drainage. There is minimal swelling in the thigh and knee and the calf. No di stal neurovascular deficits were noted Urinary Catheter Management: Lemus: Cath Placed During This Visit: yes, but has since been removed by the nurse Reason for Continuing Indwelling Catheter: Decision to DC Catheter Urinary Catheter Date of Insertion: 07/30/22 Urinary Catheter Time of Insertion: 07:30 Date Urinary Catheter Removed: 07/31/22 Time Urinary Catheter Discontinued: 08:56 Discharge Data Studies Completed and Pending Completed Studies During Hospitalization Category Date Time Status XR knee RT 1-2V [id number] Routine Exams 07/30/22 09:17 Completed Radiology Impressions Knee X-Ray 07/30/22 09:17 Impression: Right knee arthroplasty. Laboratory Results WBC 7.5 10^3/uL (4.0-10.0) 07/23/22 13:35 RBC 4.60 10^6/uL (4.1-5.3) 07/23/22 13:35 Hgb 11.4 g/dL (11.7-16.6) L 07/31/22 04:42 Hct 41.5 % (42.0-52.0) L 07/23/22 13:35 MCV 90.2 fl (80-94) 07/23/22 13:35 MCH 30.0 pg (28.0-34.0) 07/23/22 13:35 MCHC 33.3 g/dL (30.0-36.0) 07/23/22 13:35 RDW 11.9 % (12.1-15.1) L 07/23/22 13:35 Plt Count 209 10^3/cmm (130-400) 07/23/22 13:35 MPV 9.7 fL (7.4-10.4) 07/23/22 13:35 Neut % (Auto) 56.3 % 07/23/22 13:35 Lymph % (Auto) 28.6 % 07/23/22 13:35 [place] % (Auto) 9.0 % 07/23/22 13:35 Eos % (Auto) 5.2 % 07/23/22 13:35 Baso % (Auto) 0.8 % 07/23/22 13:35 Neut # (Auto) 4.20 10^3/uL (1.8-7.7) 07/23/22 13:35 Lymph # (Auto) 2.1 10^3/uL (0.8-4.8) 07/23/22 13:35 [place] # (Auto) 0.7 10^3/uL (0.2-0.9) 07/23/22 13:35 Eos # (Auto) 0.4 10^3/uL (0.0-0.8) 07/23/22 13:35 Baso # (Auto) 0.1 10^3/uL (0.0-0.1) 07/23/22 13:35 Nucleated RBC % (auto) 0 % 07/23/22 13:35 Nucleated RBCs # 0.0 /100WBC 07/23/22 13:35 Sodium 139 mmol/L (136-145) 07/23/22 13:35 Potassium 4.5 mmol/L (3.5-5.1) 07/23/22 13:35 Chloride 102 mmol/L (98-107) 07/23/22 13:35 Carbon Dioxide 28 mmol/L (22-29) 07/23/22 13:35 Anion Gap 13.5 (5-19) 07/23/22 13:35 BUN 12 mg/dL (8-23) 07/23/22 13:35 Creatinine 0.8 mg/dL (0.7-1.2) 07/23/22 13:35 GFR Calculation Not Reportable 07/23/22 13:35 Glucose 125 mg/dL (65-115) H 07/23/22 13:35 POC Glucose 124 mg/dL (70-110) H 07/31/22 07:43 Calculated Osmolality 289 mOsm/kg (285-295) 07/23/22 13:35 Calcium 8.9 mg/dL (8.5-10.5) 07/23/22 13:35 Vitals Last Vital Signs Temp 98.1 F 07/31/22 04:36 Pulse 72 07/31/22 04:36 Resp 18 07/31/22 04:45 BP 121/63 07/31/22 04:36 Pulse Ox 94 07/30/22 17:44 O2 Del Method 07/31/22 04:36 Discharge Plan Discharge Patient Disposition: Home Condition: Stable Prescriptions: New celecoxib 200 mg Capsule 200 mg PO Q12H 14 Days Qty: 28 0RF acetaminophen 500 mg Tablet 1,000 mg PO Q8H 14 Days Qty: 84 0RF oxycodone 5 mg Tablet 5 mg PO Q4H PRN (Reason: Moderate Pain) 7 Days Qty: 30 0RF Continued nitroglycerin 0.4 mg tablet, sublingual 0.4 mg SUBLINGUAL Q5M PRN (Reason: chest pain) Qty: 25 3RF Rx Instructions: do not exceed 3 doses per episode glucosamine HCl 500 mg tablet 500 mg PO BID Rx Instructions: administer with meals omeprazole 20 mg capsule,delayed release(DR/EC) 20 mg PO BID Qty: 180 3RF tamsulosin [Flomax] 0.4 mg capsule 0.4 mg PO DAILY Qty: 90 3RF triamterene-hydrochlorothiazid 37.5-25 mg tablet 1 tab PO QAM Qty: 90 3RF lisinopril 2.5 mg tablet 2.5 mg PO QDAY 90 Days Qty: 90 3RF metformin 500 mg tablet extended release 24 hr 500 mg PO BID Qty: 180 3RF sucralfate [Carafate] 1 gram tablet 1 g PO .COMPLEX Qty: 120 2RF Rx Instructions: 1 g PO qid after meals and qhs; Avodart 0.5 mg capsule 0.5 mg PO BID Metamucil (with sugar) 3.4 gram/12 gram powder 1 tbsp PO DAILY PRN (Reason: Constipation) Held celecoxib 100 mg capsule 100 mg PO DAILY Qty: 90 3RF Hold Instructions: Resume on 08/15/22. May resume 100 mg daily dose once 200 mg twice daily dosing complete Discharge Orders: Discharge Order (Routine); Ordered 07/31/22 Ordered By: Hema Cobian Referrals: Oscar Natarajan FNP [Physician Director Of Personnel] - 08/03/22 8:15 am Discharge Diet: Advance as tolerated Discharge Activity: Limit activity as instructed Patient Instructions: Acetaminophen (By mouth), Oxycodone/Acetaminophen (By mouth), Celecoxib (By mouth), Precautions after Total Joint Replacement Surgery (ED), Joint Replacement Surgery (DC), Knee Replacement (GEN), Opioid Safety Activity Restrictions/Additional Instructions: Okay to shower Keep Tubigauze sleeve in place for swelling. Okay to remove for hygiene. Apply FirstIce up to 20 min/hr for pain and swelling Take Celebrex at higher dosage twice a day for the next 14 days for pain , discontinue other anti-inflammatories. May resume Celebrex at normal lower dose after 14 days Take Tylenol 500mg (2 tabs) as needed 3 times a day for mild pain take oxycodone for breakthrough pain. Exercises per physical therapy. May weight-bear as tolerated on total knee arthroplasty IF HAVE ANY PROBLEMS OR QUESTIONS CALL HOSPITAL MAINTENANCE PERSON AT AND ASK TO HAVE DR. COBIAN PAGED. Discharge Attestations Time Spent in Discharge Care*: other Quality Metrics Clinical Quality Measures [ No reported AMI, CVA or VTE this stay] Coding Level of Care Code Acute Code for Chg Fwd
[2022-07-31 09:55] VITALS: BP 138/63; PULSE 78; RESP 14; TEMP 36.7
[2022-07-31 10:01] VITALS: BP 138/63; PULSE 78; RESP 14; TEMP 36.7
== END 2022-07-31 10:22 | disposition home or self-care (01) ==
LOC: OBGYN 09:57
PROVIDERS: Anesthesiology; Admitting Provider Orthopaedic Surgery; PCP Nurse Practitioner Family; Visit Provider Orthopaedic Surgery
PROC: 8E0Y0CZ Robotic Assisted Procedure of Lower Extremity, Open Approach (ICD-10-PCS; CPT 27447; principal; 2022-07-30 07:00)
DX: M17.11 Unilateral primary osteoarthritis, right knee (principal); I25.10 Atherosclerotic heart disease of native coronary artery without angina pectoris; Z95.1 Presence of aortocoronary bypass graft; I10 Essential (primary) hypertension; I25.2 Old myocardial infarction; K21.9 Gastro-esophageal reflux disease without esophagitis; Z87.11 Personal history of peptic ulcer disease; Z79.84 Long term (current) use of oral hypoglycemic drugs; N40.0 Benign prostatic hyperplasia without lower urinary tract symptoms; E11.9 Type 2 diabetes mellitus without complications
CPT/HCPCS: 27447; 36415; 36416; 51702; 73560; 80048; 82962; 85018; 85025; 96372; 97110; 97116; 97161; 97165; 97530; C1776; G0378; J0171; J0690; J1580; J1815; J1885; J2370; J2405; J2704; J2795; J3010; J3490; J7030

== ENCOUNTER → 2022-08-03 08:05 | Outpatient (BNVA) | payer MEDICARE, SELFPAY | PROVIDERS: PCP Nurse Practitioner Family; Visit Provider Nurse Practitioner Family | DX: Z47.89 Encounter for other orthopedic aftercare (principal); Z96.651 Presence of right artificial knee joint | CPT/HCPCS: 99024 ==

== ENCOUNTER → 2022-08-28 09:04 | Outpatient (BNVA) | payer MEDICARE, SELFPAY | PROVIDERS: PCP Nurse Practitioner Family; Visit Provider Nurse Practitioner Family | DX: L23.1 Allergic contact dermatitis due to adhesives (principal); Z47.89 Encounter for other orthopedic aftercare; Z96.651 Presence of right artificial knee joint | CPT/HCPCS: 73560; 73565; 99213 ==

== ENCOUNTER → 2022-09-17 13:19 | Outpatient (BNVA) | payer MEDICARE, SELFPAY | PROVIDERS: PCP Nurse Practitioner Family; Visit Provider Nurse Practitioner Family | DX: I25.10 Atherosclerotic heart disease of native coronary artery without angina pectoris (principal); I10 Essential (primary) hypertension; Z87.891 Personal history of nicotine dependence; Z95.1 Presence of aortocoronary bypass graft | CPT/HCPCS: 99214 ==

== ENCOUNTER → 2022-11-20 08:00 | Outpatient (BNVA) | payer MEDICARE, SELFPAY | PROVIDERS: PCP Nurse Practitioner Family; Visit Provider Nurse Practitioner Family | DX: Z96.651 Presence of right artificial knee joint (principal) | CPT/HCPCS: 73560; 73565; 99213 ==

== ENCOUNTER → 2022-11-28 09:50 | Outpatient (BNVA) | payer MEDICARE, SELFPAY | PROVIDERS: PCP Nurse Practitioner Family; Visit Provider Nurse Practitioner Family | DX: E11.9 Type 2 diabetes mellitus without complications (principal); E55.9 Vitamin D deficiency, unspecified; M17.11 Unilateral primary osteoarthritis, right knee; Z12.5 Encounter for screening for malignant neoplasm of prostate | CPT/HCPCS: 80053; 80061; 82043; 82306; 82607; 83036; 84443; 85025; G0103 ==

== ENCOUNTER → 2023-03-19 14:37 | Outpatient (BNVA) | payer MEDICARE, SELFPAY | PROVIDERS: PCP Nurse Practitioner Family; Visit Provider Internal Medicine Cardiovascular Disease | DX: I25.10 Atherosclerotic heart disease of native coronary artery without angina pectoris (principal); I65.29 Occlusion and stenosis of unspecified carotid artery; I10 Essential (primary) hypertension; E11.9 Type 2 diabetes mellitus without complications; Z87.891 Personal history of nicotine dependence; Z79.84 Long term (current) use of oral hypoglycemic drugs | CPT/HCPCS: 99214 ==

== ENCOUNTER → 2023-07-26 11:35 | Outpatient (BNVA) | payer MEDICARE, SELFPAY | PROVIDERS: PCP Nurse Practitioner Family; Visit Provider Nurse Practitioner Family | DX: E11.9 Type 2 diabetes mellitus without complications | CPT/HCPCS: 80053; 80061; 83036; 84443; 85025 ==

== ENCOUNTER → 2023-08-13 13:21 | Outpatient (BNVA) | payer MEDICARE, SELFPAY | PROVIDERS: PCP Nurse Practitioner Family; Visit Provider Podiatrist Foot & Ankle Surgery | DX: B35.1 Tinea unguium (principal); I73.9 Peripheral vascular disease, unspecified; L84 Corns and callosities; M21.611 Bunion of right foot | CPT/HCPCS: 11721; 99203 ==

== ENCOUNTER → 2023-09-17 12:21 | Outpatient (BNVA) | payer MEDICARE, SELFPAY | PROVIDERS: PCP Nurse Practitioner Family; Visit Provider Internal Medicine Cardiovascular Disease | DX: I25.10 Atherosclerotic heart disease of native coronary artery without angina pectoris (principal); Z95.1 Presence of aortocoronary bypass graft; I10 Essential (primary) hypertension; I65.29 Occlusion and stenosis of unspecified carotid artery; E11.9 Type 2 diabetes mellitus without complications; Z87.891 Personal history of nicotine dependence; Z79.84 Long term (current) use of oral hypoglycemic drugs | CPT/HCPCS: 99213 ==

== ENCOUNTER → 2023-11-06 09:38 | Outpatient (BNVA) | payer MEDICARE, SELFPAY | PROVIDERS: PCP Nurse Practitioner Family; Visit Provider Nurse Practitioner Family | DX: R07.0 Pain in throat (principal); J32.9 Chronic sinusitis, unspecified; I10 Essential (primary) hypertension; E11.9 Type 2 diabetes mellitus without complications | CPT/HCPCS: 87071; 87880 ==

== ENCOUNTER → 2024-02-11 14:02 | Outpatient (BNVA) | payer MEDICARE, SELFPAY | PROVIDERS: PCP Nurse Practitioner Family; Visit Provider Physician Assistant | DX: M25.561 Pain in right knee (principal); M25.562 Pain in left knee; G89.29 Other chronic pain; M17.12 Unilateral primary osteoarthritis, left knee | CPT/HCPCS: 73560; 73565; 99214 ==

== ENCOUNTER → 2024-03-17 09:48 | Outpatient (BNVA) | payer MEDICARE, SELFPAY | PROVIDERS: PCP Nurse Practitioner Family; Visit Provider Physician Assistant | DX: M17.12 Unilateral primary osteoarthritis, left knee (principal); E11.9 Type 2 diabetes mellitus without complications; M25.561 Pain in right knee; M25.562 Pain in left knee; G89.29 Other chronic pain; Z79.84 Long term (current) use of oral hypoglycemic drugs | CPT/HCPCS: 99213 ==

== ENCOUNTER → 2024-03-24 13:00 | Outpatient (BNVA) | payer MEDICARE, SELFPAY | PROVIDERS: PCP Nurse Practitioner Family; Visit Provider Internal Medicine Cardiovascular Disease | DX: Z01.818 Encounter for other preprocedural examination (principal); Z95.1 Presence of aortocoronary bypass graft; I10 Essential (primary) hypertension; Z87.891 Personal history of nicotine dependence; I25.10 Atherosclerotic heart disease of native coronary artery without angina pectoris | CPT/HCPCS: 99214 ==

== ENCOUNTER 2024-03-30 10:27 | Outpatient (CLI) | payer MEDICARE, SELFPAY ==
--- NOTE | 2024-03-30 10:30 | CT_ITS ---
WS: [id number] CT LEFT KNEE, NONCONTRAST TECHNIQUE: Noncontrast CT of the LEFT knee to include the LEFT hip and ankle. CLINICAL INFORMATION: M17.12 - Unilateral primary osteoarthritis, left knee COMPARISON: None. DLP: 873.[address] scans at [facility] use at least one of these dose optimization techniques: automated e xposure control; mA and/or kV adjustment per patient size (includes targeted exams where dose is matc hed to clinical indication); or iterative reconstruction. FINDINGS: Advanced degenerative arthritis LEFT hip. Moderate arthritis RIGHT hip. Degenerative arthritis sacroi liac joints. Vascular calcification. Sigmoid diverticulosis. Enlarged prostate measuring 4.8 cm. Adva nced tricompartmental arthritis LEFT knee. Hypertrophic patella. Postoperative changes RIGHT TKA. CT/CT knee LT [facility] [id number] IMPRESSION: Images obtained for preoperative purposes.
== END 2024-03-30 10:28 | disposition home or self-care (01) ==
LOC: RAD 10:33
PROVIDERS: PCP Nurse Practitioner Family; Visit Provider Student in an Organized Health Care Education/Training Program
DX: Z01.818 Encounter for other preprocedural examination (principal); M17.12 Unilateral primary osteoarthritis, left knee; M79.4 Hypertrophy of (infrapatellar) fat pad; Z96.651 Presence of right artificial knee joint; K57.90 Diverticulosis of intestine, part unspecified, without perforation or abscess without bleeding; N40.0 Benign prostatic hyperplasia without lower urinary tract symptoms
CPT/HCPCS: 73700

== ENCOUNTER 2024-04-09 09:54 | Outpatient (CLI) | payer MEDICARE, SELFPAY ==
--- NOTE | 2024-04-09 10:00 | USCV_ITS ---
Jorge Moore Age: 83 Gender: M : 1940 Exam Date: 04/09/2024 10:32 Ordering Phys: Christina Hernandez MD ([email or web address]) Technologist: Exam Location: [facility] [place] Indication: cp cad BP: 110 / 70 HR: 70 Rhythm: Sinus Technical Quality: Adequate MEASUREMENTS (Male / Female) Normal Values 2D ECHO LV Diastolic Diameter PLAX 3.7 cm 4.2 - 5.9 / 3.9 - 5.3 cm IVS Diastolic Thickness 1.2 cm 0.6 - 1.0 / 0.6 - 0.9 cm IVS Systolic Thickness 1.6 cm LVPW Diastolic Thickness 1.2 cm 0.6 - 1.0 / 0.6 - 0.9 cm LVPW Systolic Thickness 1.4 cm LVOT Diameter 2.0 cm LV Ejection Fraction 2D Teich 65.3 % LV Ejection Fraction MOD 4C 59.0 % LV Ejection Fraction MOD 2C 68.8 % LV Ejection Fraction 2C AL 67.1 % LA Diameter 3.8 cm RA Systolic Volume 4C AL 46.2 ml RA Systolic Volume 4C MOD 44.1 ml LA Sys Volume AL 50.4 cm cubed LA Sys Volume Index AL 27.4 cm cubed/m squared Aorta at Sinotubular Diameter 2.7 cm IVC Diameter 2.0 cm M-MODE LA Ao Ratio MM 1.5 AV Cusp Separation MM 1.8 cm DOPPLER AV Peak Velocity 106.0 cm/s MV Area PHT 2.7 cm squared Mitral E to A Ratio 0.7 TV Peak Velocity 199.0 cm/s TR Peak Velocity 205.0 cm/s TR Peak Gradient 16.8 mmHg TV Peak E Velocity 97.0 cm/s Right Atrial Pressure 3.0 mmHg Pulmonary Artery Systolic Pressu 19.8 mmHg PV Peak Velocity 75.0 cm/s FINDINGS Left Ventricle Normal left ventricular size, systolic function and wall thickness, with no regional wall motion abnormalities. Left ventricular ejection fraction is estimated at 60 %. Grade I/IV diastolic dysfunction (abnormal relaxation filling pattern), normal to mildly elevated filling pressures. Right Ventricle The right ventricle is normal in size and function. Right Atrium The right atrium is normal in size. Left Atrium The left atrium is normal in size. Mitral Valve Mildly thickened mitral valve. No mitral valve stenosis. Mild mitral valve regurgitation. Aortic Valve Structurally normal aortic valve without significant sclerosis or stenosis. There is no aortic regurgitation. Tricuspid Valve Structurally normal tricuspid valve without significant stenosis or regurgitation. Pulmonary artery systolic pressure is normal. Pulmonic Valve Structurally normal pulmonic valve without significant stenosis. There is no pulmonic regurgitation. Pericardium Normal pericardium without effusion. Aorta Normal ascending aorta dimension. IVC The inferior vena cava appears normal. CONCLUSIONS Normal left ventricular size, systolic function and wall thickness, with no regional wall motion abnormalities. Left ventricular ejection fraction is estimated at 60 %. Grade I/IV diastolic dysfunction (abnormal relaxation filling pattern), normal to mildly elevated filling pressures. Mildly thickened mitral valve. No mitral valve stenosis. Mild mitral valve regurgitation. Structurally normal aortic valve without significant sclerosis or stenosis. There is no aortic regurgitation. There is no pericardial effusion. Right atrial pressure is around 5 mm of mercury. Christina Hernandez MD (Electronically Signed) Final Date: 09 April 2024 23:37 S
[2024-04-09 10:43] LABS: Basophils # 0.1 10^3/uL (0.0-0.1); Basophils % 0.7 %; Eosinophils # 0.4 10^3/uL (0.0-0.8); Eosinophils % 4.9 %; Hematocrit 43.2 % (37-53); Lymphocytes % 22.4 %; Mean Corpuscular HGB Conc 33.3 g/dL (30-55); Mean Corpuscular Hemoglobin 30.3 pg (27-33); Mean Corpuscular Volume 90.8 fl (82-101); Mean Platelet Volume 9.4 fL (7.4-10.4); Monocytes # 0.9 10^3/uL (0.2-0.9); Monocytes % 10.3 %; Neutrophils # 5.48 10^3/uL (1.8-7.7); Neutrophils % 61.3 %; Nucleated Red Blood Cells % 0 %; Platelet Count 236 10^3/cmm (157-399); Red Blood Count 4.76 10^6/uL (3.85-5.65); Red Cell Distribution Width 12.3 % (12.1-15.1); White Blood Count 8.94 10^3/uL (3.29-11.43)
[2024-04-09 10:45] LABS: Bilirubin Urine Negative (Negative); Blood Urine Negative (Negative); Glucose Urine UA Negative (Normal); Ketones Urine Negative (Negative); Leukocyte Esterase Urine Negative (Negative); Nitrate Urine Negative (Negative); Protein Urine Negative (Negative); Urine Appearance Clear (CLEAR); Urine Color Yellow (Yellow); pH Urine 5.5 (5-7)
[2024-04-09 10:47] LABS: Add Urine Microscopic? YES; Bacteria Urine None Seen /hpf; Hyaline Casts Urine 1.65 /lpf; RBC Urine 0-2 /hpf (0-2); Squamous Epithelial Cell Urine 0-5 /hpf (0-5); WBC Urine 0-5 /hpf (0-5)
[2024-04-09 10:56] LABS: Estmated Average Glucose 134; Hemoglobin A1C 6.3 % (4.0-6.0)
[2024-04-09 10:59] LABS: Alanine Aminotransferase 39 U/L (0-41); Albumin Level 3.9 g/dL (3.5-5.2); Alkaline Phosphatase 90 U/L (40-130); Anion Gap 10.7 (5-19); Aspartate Amino Transferase 22 U/L (0-40); Blood Urea Nitrogen 23 mg/dL (8-23); Calcium 8.7 mg/dL (8.5-10.5); Carbon Dioxide 30 mmol/L (22-29); Chloride 99 mmol/L (98-107); Globulin 2.3 g/dL (1.3-4.6); Glucose 123 mg/dL (65-115); Osmolality Calculated 285 mOsm/kg (285-295); Potassium 4.7 mmol/L (3.5-5.1); Sodium 135 mmol/L (136-145); Total Bilirubin 0.2 mg/dL (0.15-1.2); Total Protein 6.2 g/dL (6.6-8.7)
== END 2024-04-09 09:55 | disposition home or self-care (01) ==
PROVIDERS: Absent Provider Student in an Organized Health Care Education/Training Program; PCP Nurse Practitioner Family; Visit Provider Internal Medicine Cardiovascular Disease
DX: Z01.818 Encounter for other preprocedural examination (principal); R06.02 Shortness of breath; E11.9 Type 2 diabetes mellitus without complications; I50.30 Unspecified diastolic (congestive) heart failure
CPT/HCPCS: 36415; 80053; 81001; 83036; 85025; 93306

== ENCOUNTER → 2024-04-10 12:11 | Outpatient (BNVA) | payer MEDICARE, SELFPAY | PROVIDERS: PCP Nurse Practitioner Family; Visit Provider Family Medicine | DX: Z01.818 Encounter for other preprocedural examination (principal) | CPT/HCPCS: 93005 ==

== ENCOUNTER 2024-04-13 09:16 | Observation (INO) | payer MEDICARE, SELFPAY ==
[2024-04-13] VITALS (18 sets, daily range): BP systolic 101–129; BP diastolic 47–78; PULSE 56–95; RESP 10–24; TEMP 36.2–36.8; O2SAT 95–100; BMI 21.8
--- NOTE | 2024-04-13 06:25 | ANES.PREANE2 ---
Pre-Anesthetic Assessment Height/Weight: Height 5 ft 9 in Weight 148 lb Temp Pulse Resp BP Pulse Ox O2 Del Method 97.5 F L 72 16 126/78 99 Room Air 04/13/24 06:15 04/13/24 06:15 04/13/24 06:15 04/13/24 06:15 04/13/24 06:15 04/13/24 06:15 Preop Diagnosis: Knee arthritis Operation Date: 04/13/24 07:00 Proposed Procedures p Jaswinder Robot Total Knee Arthroplasty(Left) - Carlos Alberto Long, DO Was Beta Henna taken within 24 hours: N/A Was Clonidine taken within 24 hours: N/A Last intake: Intake Last Liquid Date 04/13/24 Last Liquid Time 18:30 Last Solid Date 04/12/24 Last Solid Time 18:30 Social No alcohol and No tobacco Exam alert, oriented x 3, clear to auscultation bilaterally and regular rate & rhythm Airway Submandibular: within normal limits Cervical ROM: within normal limits Mallampati: Class III Dentition: partials Anesthetic Plan ASA status: 3 Anesthesia: MAC and Regional (specify below) Other: No prior issues with anesthesia NPO since yesterday Prior knee replacement with spinal anesthetic and did well History of hypertension on lisinopril GERD on omeprazole Type 2 diabetes, no insulin CAD s/p CABG Echo showing EF 60% with no wall motion abnormalities. Deemed minimal risk from cardiology for anesthesia Labs 04/09/2024 reviewed. Chronic hyponatremia noted, sodium 135 Plan for spinal anesthetic with post induction adductor canal block Medications/Allergies Home Medications Medication Instructions Recorded Confirmed Last Taken Type psyllium husk (with sugar) 3.4 1 tbsp PO DAILY PRN Constipation 07/23/22 04/10/24 Unknown History gram/12 gram oral powder (Metamucil (with sugar)) glucosamine HCl 500 mg tablet 500 mg PO DAILY 09/17/22 04/10/24 04/10/24 History triamterene 37.5 1 tab PO QAM PRN swelling 09/17/22 04/10/24 Unknown History mg-hydrochlorothiazide 25 mg tablet triamcinolone acetonide 0.1 % 1 applic topical BID 14 days #80 03/19/23 04/10/24 04/10/24 Rx topical cream grams azelastine 137 mcg (0.1 %) nasal 2 spray intranasal DAILY #30 mL 08/19/23 04/10/24 04/10/24 Rx spray celecoxib 100 mg capsule 100 mg PO DAILY #90 caps 08/19/23 04/10/24 04/10/24 Rx dutasteride 0.5 mg capsule 0.5 mg PO BID #180 caps 08/19/23 04/10/24 04/10/24 Rx (Avodart) levocetirizine 5 mg tablet (Xyzal) 5 mg PO DAILY #90 tabs 08/19/23 04/10/24 04/10/24 Rx lisinopril 2.5 mg tablet 2.5 mg PO QDAY #90 tabs 08/19/23 04/10/24 04/10/24 Rx metformin 500 mg tablet,extended 500 mg PO BID #180 tabs 08/19/23 04/10/24 04/10/24 Rx release 24 hr tamsulosin 0.4 mg capsule (Flomax) 0.4 mg PO DAILY #90 caps 08/19/23 04/10/24 04/10/24 Rx omeprazole 20 mg capsule,delayed 20 mg PO BID #180 caps 09/10/23 04/10/24 04/10/24 Rx release aspirin 81 mg chewable tablet 81 mg PO DAILY 04/10/24 04/13/24 04/10/24 History Allergies Allergy/AdvReac Type Severity Reaction Status Date / Time pravastatin [From Pravachol] Allergy Unknown Verified 04/10/24 12:47 [facility] Anesthesia Medical History Enrolled in chronic care management Carotid stenosis HTN (hypertension) BPH (benign prostatic hyperplasia) ASHD (arteriosclerotic heart disease) Diabetes type 2, controlled Surgical History History of total right knee replacement History of laparoscopic cholecystectomy History of coronary artery bypass graft Social History Smoking and tobacco/nicotine status: never used tobacco/nicotine Quit status (tobacco/nicotine): has quit using Second hand smoke exposure: No Alcohol intake: never Substance/Drug Use: never Household members: spouse Marital status: service: No Current occupational status: retired Current gender identity: Male Special olimpia needs: No Agree to transfusion: Yes Data Anesthesia Cardiac Studies: Echocardiogram 04/09/24 Sestamibi Stress Test (Cardiology) 06/25/22
[2024-04-13] MEDS: lactated ringers 500 ML IV (06:53)
--- NOTE | 2024-04-13 06:58 | W.PM.OPSUD ---
Surgery/Procedure H&P Update DATE OF PROCEDURE: April 13, 2024 DATE H&P PERFORMED: 03/17/24 H&P UPDATE INFORMATION: I have reviewed H&P completed within last 30 days, I have examined patient prior to procedure and No changes to prior documentation PREOP DIAGNOSIS: Left knee degenerative joint disease PRIMARY INDICATION FOR PROCEDURE: Left knee degenerative joint disease PLANNED PROCEDURE: Operation Date: 04/13/24 07:00 Proposed Procedures p Jaswinder Robot Total Knee Arthroplasty(Left) - Carlos Alberto Long DO
[2024-04-13] MEDS: ketorolac 30 mg/mL INJ IVP (07:02)
[2024-04-13 07:04] LABS: Basophils # 0.1 10^3/uL (0.0-0.1); Basophils % 0.7 %; Eosinophils # 0.5 10^3/uL (0.0-0.8); Eosinophils % 5.7 %; Hematocrit 42.6 % (37-53); Lymphocytes # 2.5 10^3/uL (0.8-4.8); Lymphocytes % 29.7 %; Mean Corpuscular HGB Conc 32.9 g/dL (30-55); Mean Corpuscular Hemoglobin 29.5 pg (27-33); Mean Corpuscular Volume 89.7 fl (82-101); Mean Platelet Volume 9.2 fL (7.4-10.4); Monocytes # 0.9 10^3/uL (0.2-0.9); Monocytes % 10.7 %; Neutrophils # 4.36 10^3/uL (1.8-7.7); Nucleated Red Blood Cells % 0 %; Platelet Count 227 10^3/cmm (157-399); Red Blood Count 4.75 10^6/uL (3.85-5.65); Red Cell Distribution Width 12.1 % (12.1-15.1); White Blood Count 8.24 10^3/uL (3.29-11.43)
[2024-04-13] MEDS: acetaminophen 1,000 MG/100 ML PIGGYBACK 400 MG IV ×3 (07:05→23:39)
[2024-04-13] MEDS: ceFAZolin 2,000 MG in sodium chloride 0.9% (plus) 50 ML 100 MG IV ×3 (07:10→23:42)
--- NOTE | 2024-04-13 07:20 | ANES.PROC ---
Anesthesia Procedures Procedure/Date: 04/13/24 Nerve Block ^: Nerve Block 1: Main Anesthesia: spinal anesthesia block Time Out Performed: Yes Consent: requested by attending/covering physician and from patient Nerve block location: adductor canal Anesthesia monitors applied: pulse oximetry, EKG, BP cuff and oxygen Nerve block position: supine Anesthetic Used: ropivicaine 0.5% Amount of anesthesia used (mL): 20 Ultrasound used to: recognize landmarks Nerve Stimulator Used?: No Interscalene/Femoral BLK: other needle (pjunk 4 inch) Injection: neg aspiration of heme Patient Tolerated Procedure: well Complications: none
[2024-04-13 07:29] LABS: Anion Gap 11.7 (5-19); Blood Urea Nitrogen 14 mg/dL (8-23); Calcium 8.4 mg/dL (8.5-10.5); Carbon Dioxide 28 mmol/L (22-29); Chloride 104 mmol/L (98-107); Creatinine Clr Calc Pharmacy 69.7539; Glucose 145 mg/dL (65-115); Osmolality Calculated 291 mOsm/kg (285-295); Potassium 4.7 mmol/L (3.5-5.1); Sodium 139 mmol/L (136-145)
[2024-04-13] MEDS: tranexamic acid 1,000 mg/10mL SDV 1000 MG IV (07:35)
[2024-04-13] MEDS: EPINEPHrine 1 mg/mL INJ XX (08:22)
[2024-04-13] MEDS: ketorolac 30 mg/mL INJ XX (08:22)
[2024-04-13] MEDS: ROPivacaine 0.2% Premix 100 mL 200 MG XX (08:22)
[2024-04-13] MEDS: tranexamic acid 1,000 mg/10mL SDV 1000 MG XX (08:22)
[2024-04-13] MEDS: VANCOMYCIN ADD-Vantage 1,000 MG VIAL 1000 MG XX (08:25)
--- NOTE | 2024-04-13 09:14 | W.PM.BPON ---
Date of Procedure: 04/13/2024 Surgeon: Carlos Alberto Long DO Vocational Guidance Counselor(s): Jonathan Long PA-C Procedure(s) performed: Left total knee arthroplasty?Jaswinder robotic assisted Findings of the procedure(s): Patient had severe left knee degenerative joint disease underwent procedure as planned without issues or complications Estimated blood loss: 20 mL Specimen(s) removed: Tibia femur and patellar bone cuts removed Post-operative diagnosis: Left knee degenerative joint disease
--- NOTE | 2024-04-13 09:16 | PM.OP ---
Operative Report Date of procedure: April 13, 2024 Surgeon: Carlos Alberto Long DO Procedure: Preoperative diagnosis: Left knee degenerative joint disease Post-op diagnosis: Same Procedure done: Left total knee arthroplasty, cemented?robotic assisted Jaswinder Implants: [place] triathlon size 5 femur CR cemented?left Ghada triathlon size? 5 tibia universal baseplate cemented Ghada triathlon symmetric patella size 33 mm [place] triathlon polyethylene 10mm Surgeon: Carlos Alberto Long DO Estimated blood?loss: 20 mL Tourniquet 68 minutes IV fluids: 800cc Urine output: 30 mL Complications: None Condition: stable Disposition: floor Brief History: Patient is a 83-year-old male with with chronic?left knee degenerative joint disease.? Patient has been worked up in the outpatient setting in the orthopedic office at this point time through shared decision making given? [id number] arthritis as well as failed conservative treatment, and pt would?like to proceed with a?left total knee arthroplasty.? Through shared decision making elected to proceed with surgical intervention for?left total knee arthroplasty Jaswinder robotic assisted.? We talked about continued conservative treatment and surgical intervention as far as the risk benefits complications alternatives surgical and nonsurgical treatment options.? At this point time understanding patient risks with surgery he agrees to proceed with surgical intervention.? Once again? risk with surgery include but are not?limited to make it better make it worse blood clot, heart attack, stroke, on the table, infection, injury to nerves or vessels, persistent pain, arthrofibrosis, implant failure.? Understanding these risks patient agrees to proceed with surgical intervention consent was obtained in the preoperative holding area. Patient is clear the preoperative clearance process.? All questions answered. Procedure: Patient was seen and evaluated in the preoperative holding area.? Consent was reviewed and signed with patient with plan for?left total knee arthroplasty.? All questions answered.? Correct extremity marked.? Patient seen and evaluated by the anesthesia department and once cleared for surgery was taken back to the operative suite.? Patient was placed into a supine position on the OR table.? All bony prominences were well-padded.? Patient was appropriately secured to the bed.? Patient underwent anesthesia per the anesthesia department.? Patient received spinal anesthesia and? Lemus catheter was placed.? A nonsterile tourniquet was applied to the?left thigh.? At this point in time a final timeout performed.? Patient received appropriate preoperative antibiotics and TXA. Next the?left?lower extremity was then prepped and draped in standard orthopedic fashion. Esmarch tourniquet was used exsanguinate the?left?lower extremity.? Tourniquet was insufflated to 250 mmHg. A standard anterior incision was made over midline of the knee.? Sharp scalpel excision through skin and subcutaneous tissue full-thickness skin flaps were made.? Fascia was elevated off of the extensor retinaculum was stable with medial parapatellar arthrotomy was then made.? The performed standard sequential releases..? Immediately on entry into the joint patient was found to have severe eburnated bone and tricompartmental arthritic changes noted with significant osteophyte formation.? Next the the patella was then stuffed and the knee was then flexed.?? Maggi was placed superiorly around the anterior aspect of the femur this was freed of synovium and I subsequently then placed by 2 femur pins to establish my femur arrays for the Jaswinder robot.? These were then placed bicortically and? femur array was then appropriately secured with appropriate visualization.? Next attention was turned towards the tibial rays.? These were then drilled sequentially bicortically in parallel fashion and intraincisional.? I then placed my guide as well as my tibial array on in place.? This was appropriately secured and had excellent visualization with the Jaswinder robot.? Next the tibial checkpoint as well as femur checkpoint were then placed.? At this point time I then subsequently established my head center as well as my medial?lateral malleoli as well as my checkpoints.? Next utilizing standard Jaswidner technology I then mapped out the appropriate points and confirmation points around the femur as well as the tibia in standard fashion.? Once this was then done I then removed all osteophytes in preparation for dynamic testing.? All osteophytes were removed as well as I removed the ACL and the PCL was excised due to its significant tearing and degeneration noted.? At this point time the knee was brought into full extension and we performed our standard evaluation of our gap balancing stressing his?ligaments and extension as well as flexion appropriate adjustments were made to have appropriate gap balancing in both flexion and extension.? This plan for final counts.? We get a preoperative plan evaluating our implants which was a size 5 femur and a size 5 tibia.? Next we brought in the Jaswinder robot and sequentially made our femur cuts.? All excess bony cuts were then removed.? Finally we made our tibial cut.? Once this was done a standard PCL retractor was then placed into this position I excised the medial and?lateral meniscus.? The tibial cut was then subsequently removed all excess bony debris was removed.? I then utilized a?lamina metal furniture assembly supervisor and remove the posterior osteophytes.? At this point time sized the tibia and confirmed this was a size 5.? I utilized our blunt probe to establish rotation of tibial implant.? Once this was done I then placed my tibia size 5 trial in appropriate position and then subsequently placed tibial pins to hold this into place placed a size 10 mm poly as well as a size 5 femur which was appropriately impacted in place knee was then subsequently brought into extension. Trials were then assessed,? this was stable with varus valgus stress in extension as well as had symmetrical translation when brought into flexion demonstrating symmetrical gaps. I had excellent balance gaps in flexion and extension with varus and valgus stresses.? At this point I was satisfied with these implants these were then verified and opened on the back table size 5 tibia, size 5 femur,? size 10 mm polythickness.? We did confirm appropriate gap balancing and stresses as well as alignment utilizing? SiteMinder and were satisfied with this plan.? ?At this point time with my trials in place I then towel clip the patella everted this made appropriate measurements subsequently utilizing freehand technique performed by patellar resurfacing this was confirmed to be appropriate resection and subsequently sized to be a 33 mm symmetric.? My drill peg guides were then clamped and appropriate position and appropriate position in the patella for appropriate tracking and parallel with the joint.? Pegs were drilled trial implant was placed and the knee was then subsequently ranged and found to have excellent patellar tracking.? Femur pegs were then drilled.?All checkpoints as well as guidepins and arrays were removed and appropriate counts made. Satisfied with our tibial placement rotation I then utilized the keel punch and prepped the tibia.? At this point time all of our trial implants were removed.?? The wound bed? was thoroughly irrigated and dried and prepped for cementation.? Cement was mixed on the back table.? Once cement was ready this was then covered onto the tibia and the tibial baseplate was then impacted and all excess cement was removed.? Next the polyethylene was then impacted into place on the tibial baseplate.? Next cement was placed onto the femur as well as under the femur implants and impacted in to place and all excess cement was extruded and removed.? Knee was taken into full extension? to clear all excess cement was removed.? Warm saline was placed over the joint.? I then towel clip patella and dried for cementation. cemented the patella into place.? This was all clamped and the cement was allowed to cure.? Thorough irrigation performed with pulse?lavage.? I then placed my periarticular injection while the cement was curing.? Once cured the knee was taken through range of motion and had excellent stability and gaps were balanced in flexion and extension.? Tourniquet was then deflated. hemostasis satisfactory with electrocautery.? Vancomycin powder was placed inside the wound bed for antibiotic infection prophylaxis next I then subsequently closed the capsule with Ethibond suture as well as a running strata fix suture.? Knee was then taken through range of motion 30 times.? Next the skin was then closed in?layered fashion of running stratifix sutures of deep and subcutenous tissue and skin.? ?closed in flexion and Prineo glue was then placed over the incision this allowed to cure.? Incision was covered with shahla incisional VAC dressing, with ABDs soft roll and Brian wrap.? Patient was then awakened from anesthesia and taken to PACU in stable condition. Disposition: Patient taken to PACU in stable condition will be admitted to the floor for pain control PT/OT weight-bear as tolerated?left?lower extremity dressing changes as needed, DVT prophylaxis. Pain control. Patient will receive appropriate postoperative antibiotics. patient will be seen today by the internal medicine team for medical management.? Patient will follow up with the office in 2 weeks.? Patient understands agrees with current plan.? All questions answered.
--- NOTE | 2024-04-13 09:24 | XRR_ITS ---
PROCEDURE INFORMATION: Exam: XR Left Knee Exam date and time: 04/13/2024 9:44 AM Age: 83 years old Clinical indication: Device placement; Joint replacement hardware; Prior surgery; Surgery date: Post-operative (0-2 days); Surgery type: Post L tka; Additional info: Post L tka, do in pacu TECHNIQUE: Imaging protocol: Radiologic exam of the left knee. Views: 3 views. COMPARISON: CT knee LT JERRY [id number] 03/30/2024 11:05 AM FINDINGS: Bones/joints: There are postoperative changes of left knee arthroplasty. Alignment of the osseous structures and surgical hardware are within normal limits. No acute fractures Soft tissues: There is gas within the joint space and subcutaneous soft tissues owing to recent postoperative changes. XR/XR knee LT 3V* [id number] IMPRESSION: Postoperative changes of left knee arthroplasty without evidence of acute fracture
--- NOTE | 2024-04-13 09:49 | P.PCN_ITS ---
PACU note Narrative: Patient is an 83-year-old male who just underwent a left total knee arthroplasty. Pt transferred to PACU in stable condition. Dressing is dry. pt is awake and alert. Distal pulses are palpable toes are warm and well- perfused. Cap refill is normal and under 2 seconds. Unable to do any further assessment on motor sensation to left leg due to residual spinal block. Pain is controlled. Exam: awake Disposition: admitted
--- NOTE | 2024-04-13 10:07 | ANE.PACU2 ---
Inpatient post-anesthesia follow up: Airway intact: Yes Vital signs: Temperature 98.0 F Pulse Rate 65 Respiratory Rate 19 Blood Pressure 124/75 Pulse Oximetry 98 Oxygen Delivery Me thod Room Air Oxygen Flow Rate 8 Fraction of Inspir ed Oxygen Hydration adequate: Yes Nausea and vomiting: No Pain level: 1 Mental status: Baseline
--- NOTE | 2024-04-13 10:17 | PC.NURSE ---
1010 - into room 264 - report given to Litzy RN - Litzy did ok time to floor during telephone report - current v/s 111/62 - 02 96% RA - Pulse 72 - temp 97.3 - pt remains in no distress with resp even and unlabored - A&Ox4 - daughter at side - IV patent - sprague draining yellow urine - left knee dressing c/d/i with no drainage noted - verified all of the above with ARNOL Stokes
--- NOTE | 2024-04-13 10:40 | PM.HP ---
Providers/Chief Complaint Admitting Physician: Carlos Alberto Long DO Primary Care Provider: CRYSTAL Toro Chief Complaint: M17.12 History of Present Illness Jorge Moore is a 83 year old male who presented today for a left total knee arthroplasty secondary to degenerative joint disease. He tolerated this without difficulty, had minimal blood loss of less than 20 cc, and had no complications with the procedure. I am seeing him on the floor. He denies any chest discomfort, shortness of breath, or significant pain. He is hoping to go home later today or tomorrow. Review of Systems General: Reports: 10 or more systems reviewed and unremarkable except in HPI and below Card: Denies: chest pain Resp: Denies: dyspnea GI: Denies: abdominal pain Medications/Allergies Home Medications Medication Instructions Recorded Confirmed Last Taken Type psyllium husk (with sugar) 3.4 1 tbsp PO DAILY PRN Constipation 07/23/22 04/10/24 Unknown History gram/12 gram oral powder (Metamucil (with sugar)) glucosamine HCl 500 mg tablet 500 mg PO DAILY 09/17/22 04/10/24 04/10/24 History triamterene 37.5 1 tab PO QAM PRN swelling 09/17/22 04/10/24 Unknown History mg-hydrochlorothiazide 25 mg tablet triamcinolone acetonide 0.1 % 1 applic topical BID 14 days #80 03/19/23 04/10/24 04/10/24 Rx topical cream grams azelastine 137 mcg (0.1 %) nasal 2 spray intranasal DAILY #30 mL 08/19/23 04/10/24 04/10/24 Rx spray celecoxib 100 mg capsule 100 mg PO DAILY #90 caps 08/19/23 04/10/24 04/10/24 Rx dutasteride 0.5 mg capsule 0.5 mg PO BID #180 caps 08/19/23 04/10/24 04/10/24 Rx (Avodart) levocetirizine 5 mg tablet (Xyzal) 5 mg PO DAILY #90 tabs 08/19/23 04/10/24 04/10/24 Rx lisinopril 2.5 mg tablet 2.5 mg PO QDAY #90 tabs 08/19/23 04/10/24 04/10/24 Rx metformin 500 mg tablet,extended 500 mg PO BID #180 tabs 08/19/23 04/10/24 04/10/24 Rx release 24 hr tamsulosin 0.4 mg capsule (Flomax) 0.4 mg PO DAILY #90 caps 08/19/23 04/10/24 04/10/24 Rx omeprazole 20 mg capsule,delayed 20 mg PO BID #180 caps 09/10/23 04/10/24 04/10/24 Rx release aspirin 81 mg chewable tablet 81 mg PO DAILY 04/10/24 04/13/24 04/10/24 History Allergies Allergy/AdvReac Type Severity Reaction Status Date / Time pravastatin [From Pravachol] Allergy Unknown Verified 04/10/24 12:47 PFSH Acute PFSH: Medical History Enrolled in chronic care management Carotid stenosis HTN (hypertension) BPH (benign prostatic hyperplasia) ASHD (arteriosclerotic heart disease) Diabetes type 2, controlled Surgical History History of total right knee replacement History of laparoscopic cholecystectomy History of coronary artery bypass graft Social History Smoking and tobacco/nicotine status: never used tobacco/nicotine Quit status (tobacco/nicotine): has quit using Second hand smoke exposure: No Alcohol intake: never Substance/Drug Use: never Household members: spouse Marital status: service: No Current occupational status: retired Current gender identity: Male Special olimpia needs: No Agree to transfusion: Yes Vitals/I&O/Wt Last Vital Signs Temp 97.2 F L 04/13/24 10:34 Pulse 71 04/13/24 10:34 Resp 18 04/13/24 10:34 BP 111/62 04/13/24 10:34 Pulse Ox 97 04/13/24 10:34 O2 Del Method Room Air 04/13/24 10:34 O2 Flow Rate 8 04/13/24 09:40 04/12/24 04/13/24 04/13/24 22:59 06:59 14:59 Intake Total 200 / 200 Output Total 45 / 45 Balance 155 / 155 Weight last 48 hrs Weight 67.132 kg Physical Exam Narrative: General exam is a conversant white male with at bedside, they have no specific complaints currently HEENT: Oropharynx clear Neck is supple Cardiovascular regular rate and rhythm, no murmur Lungs clear Abdomen is soft Extremities no cyanosis clubbing or edema, dressing in place right knee Lemus noted Skin no rash Neuro no focal deficits Urinary Catheter Management: Lemus: Cath Placed During This Visit: yes Urinary Catheter Date of Insertion: 04/13/24 Urinary Catheter Time of Insertion: 07:23 Data 04/13/24 06:55 04/13/24 06:55 Other data: Echocardiogram from from April 09 demonstrated intact EF, 1/4 diastolic dysfunction. A&P Assessment and plan (1) Osteoarthritis of right knee: Patient has just undergone a right total knee arthroplasty. No obvious complications Eliquis is going to be used for DVT prophylaxis Physical therapy consultation Laboratory ordered in the morning (2) ASHD (arteriosclerotic heart disease): Patient with history of coronary artery disease with history of bypass in the past. Continue aspirin Discussed with him Eliquis being given with aspirin, and to monitor for any blood loss Discussed with him the potential for adding statin in the future. He is going to think about this and talk with his primary care provider. He cannot remember his allergy to Pravachol, but certainly was not anaphylaxis or rash. (3) HTN (hypertension): Patient with history of hypertension I will evaluate his blood pressure tomorrow morning prior to restarting his medications. Qualifiers: Hypertension type: essential hypertension Qualified Code(s): I10 - Essential (primary) hypertension (4) Diabetes type 2, controlled: Consistent carb diet Sliding scale insulin as needed Qualifiers: Diabetes mellitus watermaster insulin use: without usp use Diabetes mellitus complication status: without complication Qualified Code(s): E11.9 - Type 2 diabetes mellitus without complications Plan Other medical problems as outlined in this past medical history Thank you for this consultation Attestations Medical Necessity Statement*: As per primary Diagnoses Osteoarthritis of right knee M17.11 ASHD (arteriosclerotic heart disease) I25.10 Essential hypertension I10 Hypertension type: essential hypertension Controlled type 2 diabetes mellitus without complication, without long-term current use of insulin E11.9 Diabetes mellitus usp insulin use: without watermaster use Diabetes mellitus complication status: without complication Time Spent (min) 45
[2024-04-13] MEDS: lactated ringers 1,000 ML 83 ML IV ×2 (10:49→21:32)
[2024-04-13 12:08] LABS: Glucose Point of Care 118 mg/dL (70-110)
[2024-04-13] MEDS: chlorhexidine gluconate 0.12% Btl 473 mL 30 ML MUCOUS MEM ×3 (13:25→21:31)
[2024-04-13] MEDS: tranexamic acid 1,000 MG/100 ML PREMIX 600 MG IV (15:38)
[2024-04-13 15:53] LABS: Glucose Point of Care 171 mg/dL (70-110)
[2024-04-13] MEDS: mupirocin oint 22 gm 1 APPLIC NASAL (17:28)
[2024-04-13] MEDS: docusate sodium 100 mg Capsule PO (17:29)
[2024-04-13] MEDS: dutasteride 0.5 mg Capsule PO (17:29)
[2024-04-13] MEDS: pantoprazole DR 40 mg Tablet PO (17:29)
[2024-04-13] MEDS: calcium carb-vit d 600mg/400unit 1 Tablet 1 EACH PO (17:29)
[2024-04-13] MEDS: sennosides-docusate Tablet 2 TAB PO (17:30)
[2024-04-13] MEDS: insulin lispro 100 unit/1 mL SUBCUT (17:30)
[2024-04-13] MEDS: iron polysaccharide complex 150 mg Capsule PO (17:30)
[2024-04-13 20:46] LABS: Glucose Point of Care 123 mg/dL (70-110)
[2024-04-13] MEDS: oxyCODONE 5 mg IR Tab/Cap PO (21:30)
[2024-04-13] MEDS: ketorolac 30 mg/mL INJ 15 MG IVP (21:31)
[2024-04-14 00:07] VITALS: BP 121/66; PULSE 75; RESP 17; TEMP 37.1; O2SAT 96
[2024-04-14 04:47] VITALS: BP 132/69; PULSE 73; RESP 17; TEMP 37; O2SAT 95
[2024-04-14 05:52] LABS: Glucose Point of Care 128 mg/dL (70-110)
[2024-04-14 06:00] LABS: Basophils # 0.1 10^3/uL (0.0-0.1); Basophils % 0.6 %; Eosinophils # 0.3 10^3/uL (0.0-0.8); Eosinophils % 2.7 %; Hematocrit 37.7 % (37-53); Lymphocytes # 1.8 10^3/uL (0.8-4.8); Lymphocytes % 18.3 %; Mean Corpuscular HGB Conc 32.4 g/dL (30-55); Mean Corpuscular Hemoglobin 29.9 pg (27-33); Mean Corpuscular Volume 92.4 fl (82-101); Mean Platelet Volume 9.5 fL (7.4-10.4); Monocytes % 9.7 %; Neutrophils % 68.3 %; Nucleated Red Blood Cells % 0 %; Platelet Count 166 10^3/cmm (157-399); Red Blood Count 4.08 10^6/uL (3.85-5.65); Red Cell Distribution Width 12.4 % (12.1-15.1); White Blood Count 9.96 10^3/uL (3.29-11.43)
[2024-04-14 06:21] LABS: Anion Gap 10.6 (5-19); Blood Urea Nitrogen 12 mg/dL (8-23); Calcium 7.8 mg/dL (8.5-10.5); Carbon Dioxide 26 mmol/L (22-29); Chloride 103 mmol/L (98-107); Creatinine Clr Calc Pharmacy 69.8449; Glucose 139 mg/dL (65-115); Osmolality Calculated 282 mOsm/kg (285-295); Potassium 4.6 mmol/L (3.5-5.1); Sodium 135 mmol/L (136-145)
[2024-04-14] MEDS: acetaminophen 1,000 MG/100 ML PIGGYBACK 400 MG IV (06:22)
[2024-04-14 06:23] VITALS: RESP 17; O2SAT 95
[2024-04-14] MEDS: oxyCODONE 5 mg IR Tab/Cap PO (06:23)
[2024-04-14] MEDS: ketorolac 30 mg/mL INJ 15 MG IVP (06:23)
[2024-04-14] MEDS: ceFAZolin 2,000 MG in sodium chloride 0.9% (plus) 50 ML 100 MG IV (07:14)
[2024-04-14 07:38] VITALS: BP 132/61; PULSE 67; RESP 18; TEMP 36.5; O2SAT 95
--- NOTE | 2024-04-14 08:11 | P.PN_ITS ---
Subjective 2 Subjective: No issues overnight. Excited to go home today. Reports pain is controlled. Medications: Reviewed: Yes Vitals/I&O/Wt Last Vital Signs Temp 97.7 F 04/14/24 07:38 Pulse 67 04/14/24 07:38 Resp 18 04/14/24 07:38 BP 132/61 04/14/24 07:38 Pulse Ox 95 04/14/24 07:38 O2 Del Method Room Air 04/14/24 07:38 O2 Flow Rate 8 04/13/24 09:40 04/13/24 04/14/24 04/14/24 22:59 06:59 14:59 Intake Total 1619.483 / 2299.483 390 / 2689.483 100 / 100 Output Total 1000 / 1045 550 / 1595 Balance 619.483 / 1254.483 -160 / 1094.483 100 / 100 Weight last 48 hrs Weight 67.358 kg Weight 67.132 kg Weight 67.132 kg Physical Exam 2 Narrative: General exam no distress Neck is supple Cardiovascular regular rate and rhythm, no murmur Lungs clear Abdomen is soft Extremities no cyanosis clubbing or edema, dressing in place right knee Urinary Catheter Management: Lemus: Cath Placed During This Visit: yes, but has since been removed by the nurse Reason for Continuing Indwelling Catheter: Decision to DC Catheter Urinary Catheter Date of Insertion: 04/13/24 Urinary Catheter Time of Insertion: 07:23 Date Urinary Catheter Removed: 04/14/24 Time Urinary Catheter Discontinued: 06:32 Data 04/14/24 05:47 04/14/24 05:47 A&P Assessment and plan (1) Osteoarthritis of right knee: Postoperative day #1 right total knee arthroplasty. No obvious complications Eliquis is going to be used for DVT prophylaxis Physical therapy consultation appreciated Laboratory reviewed, no concerns (2) ASHD (arteriosclerotic heart disease): Patient with history of coronary artery disease with history of bypass in the past. Continue aspirin Discussed with him Eliquis being given with aspirin, and to monitor for any blood loss Discussed with him the potential for adding statin in the future. He is going to think about this and talk with his primary care provider. He cannot remember his allergy to Pravachol, but certainly was not anaphylaxis or rash. (3) HTN (hypertension): Patient with history of hypertension Restart lisinopril today Qualifiers: Hypertension type: essential hypertension Qualified Code(s): I10 - Essential (primary) hypertension (4) Diabetes type 2, controlled: Consistent carb diet Sliding scale insulin as needed Qualifiers: Diabetes mellitus ocean transportation intermediary insulin use: without long-term use Diabetes mellitus complication status: without complication Qualified Code(s): E11.9 - Type 2 diabetes mellitus without complications Plan Other medical problems as outlined in this past medical history Thank you for this consultation Attestations 2 Medical Necessity Statement*: as per primary Diagnoses Osteoarthritis of right knee M17.11 ASHD (arteriosclerotic heart disease) I25.10 Essential hypertension I10 Hypertension type: essential hypertension Controlled type 2 diabetes mellitus without complication, without long-term current use of insulin E11.9 Diabetes mellitus long-term insulin use: without ocean transportation intermediary use Diabetes mellitus complication status: without complication Time Spent (min) 15
[2024-04-14] MEDS: calcium carb-vit d 600mg/400unit 1 Tablet 1 EACH PO (08:22)
[2024-04-14] MEDS: tamsulosin 0.4 mg Capsule PO (08:22)
[2024-04-14] MEDS: dutasteride 0.5 mg Capsule PO (08:22)
[2024-04-14] MEDS: pantoprazole DR 40 mg Tablet PO (08:22)
[2024-04-14] MEDS: apixaban 5 mg Tablet 2.5 MG PO (08:22)
[2024-04-14] MEDS: multivitamin therapeutic Tablet 1 TAB PO (08:22)
[2024-04-14] MEDS: aspirin 81 mg Chew Tablet PO (08:22)
[2024-04-14] MEDS: sennosides-docusate Tablet 2 TAB PO (08:22)
[2024-04-14] MEDS: chlorhexidine gluconate 0.12% Btl 473 mL 30 ML MUCOUS MEM (08:23)
[2024-04-14] MEDS: docusate sodium 100 mg Capsule PO (08:23)
[2024-04-14] MEDS: iron polysaccharide complex 150 mg Capsule PO (08:23)
[2024-04-14] MEDS: mupirocin oint 22 gm 1 APPLIC NASAL (08:24)
--- NOTE | 2024-04-14 08:25 | PM.DCS ---
Discharge Providers Date of Admission: 04/13/24 09:16 Date of Discharge: April 14, 2024 Attending Provider at Admission: Carlos Alberto Long DO Attending Provider at Discharge: Carlos Alberto Long DO Consults: Dr. Valdovinos?hospitalist Primary Care Provider: CRYSTAL Toro Diagnoses at Discharge Discharge Diagnosis (1) Osteoarthritis of right knee: Status: Resolved (2) ASHD (arteriosclerotic heart disease): Status: Acute (3) HTN (hypertension): Status: Chronic Qualifiers: Hypertension type: essential hypertension Qualified Code(s): I10 - Essential (primary) hypertension (4) Diabetes type 2, controlled: Status: Chronic Qualifiers: Diabetes mellitus complication status: without complication Diabetes mellitus moth exterminator insulin use: without skilled nursing use Qualified Code(s): E11.9 - Type 2 diabetes mellitus without complications Reason for Visit Reason for Visit: M17.12 Brief History: Status post left TKA Hospital Course Hospital Course Patient presented to the preoperative holding area with plan for left total knee arthroplasty after patient has been worked up in the outpatient setting for failed conservative treatment of left knee degenerative joint disease. Once cleared by anesthesia for surgery patient subsequently was taken back to the operative suite underwent anesthesia per anesthesia department and then subsequently underwent a left total knee arthroplasty. Procedure was performed without any complications patient was taken to PACU in stable condition patient recovered well in PACU and then was admitted to the floor postoperatively internal medicine was consulted and on board for medical management and assistance with care. Patient received appropriate PT/OT, postoperative antibiotics, postoperative TXA, pain control, postoperative DVT prophylaxis. Elevation and ice. Patient encouraged for knee range of motion allowed weightbearing as tolerated to the operative lower extremity. Dressing was changed as needed, labs were monitored daily. Patient recovered well postoperatively and worked well and progressed well with therapy. It was determined on postoperative day 1 the patient was stable for discharge from an orthopedic standpoint and medicine. Patient was comfortable with discharge and plan was discharged home. Patient received appropriate discharge instructions as well as pain medication and DVT prophylaxis postoperatively. Given appropriate instructions for dressing management. Patient will follow-up with Dr. Long/orthopedics in the office in 2 weeks. All questions answered. Understand if there is any issues questions or concerns and contact the office. Physical Exam Narrative: Examination left knee: Examination left knee dressings are in place clean dry and intact compartments are soft compressible normal postoperative swelling and tenderness palpation about the left left knee. He is able to wiggle the toes plantarflex and dorsiflex ankle sensations intact light touch distally. Distal pulses are palpable calf soft nontender. Urinary Catheter Management: Lemus: Cath Placed During This Visit: yes, but has since been removed by the nurse Reason for Continuing Indwelling Catheter: Decision to DC Catheter Urinary Catheter Date of Insertion: 04/13/24 Urinary Catheter Time of Insertion: 07:23 Date Urinary Catheter Removed: 04/14/24 Time Urinary Catheter Discontinued: 06:32 Discharge Data Studies Completed and Pending Completed Studies During Hospitalization Category Date Time Status XR knee LT 3V* 62313 Routine Exams 04/13/24 09:24 Completed Pending at discharge Category Date Time Status Basic Metabolic Panel AM LABS Lab 04/15/24 04:00 Ordered Basic Metabolic Panel AM LABS Lab 04/16/24 04:00 Ordered Complete Blood Count w/Auto AM LABS Lab 04/15/24 04:00 Ordered Complete Blood Count w/Auto AM LABS Lab 04/16/24 04:00 Ordered Radiology Impressions Knee X-Ray 04/13/24 09:24 IMPRESSION: Postoperative changes of left knee arthroplasty without evidence of acute fracture Laboratory Results WBC 9.96 10^3/uL (3.29-11.43) 04/14/24 05:47 RBC 4.08 10^6/uL (3.85-5.65) 04/14/24 05:47 Hgb 12.20 g/dL (11.27-16.99) 04/14/24 05:47 Hct 37.7 % (37-53) 04/14/24 05:47 MCV 92.4 fl (82-101) 04/14/24 05:47 MCH 29.9 pg (27-33) 04/14/24 05:47 MCHC 32.4 g/dL (30-55) 04/14/24 05:47 RDW 12.4 % (12.1-15.1) 04/14/24 05:47 Plt Count 166 10^3/cmm (157-399) 04/14/24 05:47 MPV 9.5 fL (7.4-10.4) 04/14/24 05:47 Neut % (Auto) 68.3 % 04/14/24 05:47 Lymph % (Auto) 18.3 % 04/14/24 05:47 Lane % (Auto) 9.7 % 04/14/24 05:47 Eos % (Auto) 2.7 % 04/14/24 05:47 Baso % (Auto) 0.6 % 04/14/24 05:47 Neut # (Auto) 6.80 10^3/uL (1.8-7.7) 04/14/24 05:47 Lymph # (Auto) 1.8 10^3/uL (0.8-4.8) 04/14/24 05:47 Lane # (Auto) 1.0 10^3/uL (0.2-0.9) H 04/14/24 05:47 Eos # (Auto) 0.3 10^3/uL (0.0-0.8) 04/14/24 05:47 Baso # (Auto) 0.1 10^3/uL (0.0-0.1) 04/14/24 05:47 Nucleated RBC % (auto) 0 % 04/14/24 05:47 Nucleated RBCs # 0.0 /100WBC 04/14/24 05:47 Sodium 135 mmol/L (136-145) L 04/14/24 05:47 Potassium 4.6 mmol/L (3.5-5.1) 04/14/24 05:47 Chloride 103 mmol/L (98-107) 04/14/24 05:47 Carbon Dioxide 26 mmol/L (22-29) 04/14/24 05:47 Anion Gap 10.6 (5-19) 04/14/24 05:47 BUN 12 mg/dL (8-23) 04/14/24 05:47 Creatinine 0.7 mg/dL (0.7-1.2) 04/14/24 05:47 GFR Calculation Not Reportable 04/14/24 05:47 Glucose 139 mg/dL (65-115) H 04/14/24 05:47 POC Glucose 128 mg/dL (70-110) H 04/14/24 05:49 Calculated Osmolality 282 mOsm/kg (285-295) L 04/14/24 05:47 Calcium 7.8 mg/dL (8.5-10.5) L 04/14/24 05:47 Blood Type A Positive 04/13/24 06:55 Rho(D) Type Rh positive 04/13/24 06:55 Antibody Screen Negative 04/13/24 06:55 Imaging Xray Ortho: Radiologist's impression: Ordering Provider/Ordering MD: Carlos Alberto Long Date of Service: 04/13/24 Procedure(s): XR knee LT 3V* [id number] Accession Number(s): [id number] Report Number: [id number] PROCEDURE INFORMATION: Exam: XR Left Knee Exam date and time: 04/13/2024 9:44 AM Age: 83 years old Clinical indication: Device placement; Joint replacement hardware; Prior surgery; Surgery date: Post-operative (0-2 days); Surgery type: Post L tka; Additional info: Post L tka, do in pacu TECHNIQUE: Imaging protocol: Radiologic exam of the left knee. Views: 3 views. COMPARISON: CT knee LT JERRY [id number] 03/30/2024 11:05 AM FINDINGS: Bones/joints: There are postoperative changes of left knee arthroplasty. Alignment of the osseous structures and surgical hardware are within normal limits. No acute fractures Soft tissues: There is gas within the joint space and subcutaneous soft tissues owing to recent postoperative changes. XR/XR knee LT 3V* [id number] IMPRESSION: Postoperative changes of left knee arthroplasty without evidence of acute fracture Vitals Last Vital Signs Temp 97.7 F 04/14/24 07:38 Pulse 67 04/14/24 07:38 Resp 18 04/14/24 07:38 BP 132/61 04/14/24 07:38 Pulse Ox 95 04/14/24 07:38 O2 Del Method Room Air 04/14/24 07:38 O2 Flow Rate 8 04/13/24 09:40 Discharge Plan Discharge Patient Disposition: Home Health Service Condition: Stable Prescriptions: New calcium carbonate-vitamin D3 [Calcium 600 + D(3)] 600 mg-10 mcg (400 unit) tablet 1 tab PO DAILY 30 Days Qty: 30 0RF Continued glucosamine HCl 500 mg tablet 500 mg PO DAILY Rx Instructions: administer with meals aspirin 81 mg tablet,chewable 81 mg PO DAILY triamterene-hydrochlorothiazid 37.5-25 mg tablet 1 tab PO QAM PRN (Reason: swelling) triamcinolone acetonide 0.1 % cream 1 applic topical BID 14 Days Qty: 80 0RF azelastine 137 mcg (0.1 %) aerosol,spray 2 spray intranasal DAILY Qty: 30 2RF Rx Instructions: administer into each nostril Avodart 0.5 mg capsule 0.5 mg PO BID Qty: 180 3RF levocetirizine [Xyzal] 5 mg tablet 5 mg PO DAILY Qty: 90 3RF lisinopril 2.5 mg tablet 2.5 mg PO QDAY Qty: 90 3RF metformin 500 mg tablet extended release 24 hr 500 mg PO BID Qty: 180 3RF tamsulosin [Flomax] 0.4 mg capsule 0.4 mg PO DAILY Qty: 90 3RF omeprazole 20 mg capsule,delayed release(DR/EC) 20 mg PO BID Qty: 180 3RF Metamucil (with sugar) 3.4 gram/12 gram powder 1 tbsp PO DAILY PRN (Reason: Constipation) Held celecoxib 100 mg capsule 100 mg PO DAILY Qty: 90 3RF Hold Instructions: Resume on 04/28/24. Discharge Orders: Discharge Order (Routine); Ordered 04/14/24 Ordered By: Carlos Alberto Long Referrals: Carlos Alberto Long DO [Physician] - 04/28/24 8:30 am Discharge Diet: Regular Discharge Activity: Limit activity as instructed and Use walker/crutches as instructed Patient Instructions: Oxycodone, Rapid Release (By mouth), Ondansetron (By mouth), Apixaban (By mouth), Acute Wound Care (DC), Opioid Safety, Post Anesthesia Care Activity Restrictions/Additional Instructions: Discharge instructions Arash Dressing--Keep dressing on and dry. After 3 days you can remove some of the dressing and shower. disconnect battery pack when showering. Arash dressing will stay on until follow up appt in 2 weeks. The battery pack for the dressing will at 5-7 days. Battery pack can be removed and discarded once batteries . Patient may weight-bear as tolerate to the operative extremity Utilize walker as needed Encourage knee range of motion Ice and elevate as needed for pain and swelling Supplement with calcium and vitamin D for bone health and healing Take pain medication as prescribed Take antinausea medication as needed Pain medication can cause constipation. take [id number] stool softeners and or MiraLAX. Take prescribed Eliquis twice daily for the next 14 days for blood clot prevention May supplement for pain with Tylenol [id number] as needed No baths or soaks Follow-up in the orthopedic office in 2 weeks Contact the office for any questions or concerns Discharge Attestations Time Spent in Discharge Care*: less than 30 min Quality Metrics Clinical Quality Measures [ No reported AMI, CVA or VTE this stay] Coding Level of Care Code Acute Code for Chg Fwd Diagnoses Osteoarthritis of right knee M17.11 ASHD (arteriosclerotic heart disease) I25.10 Essential hypertension I10 Hypertension type: essential hypertension Controlled type 2 diabetes mellitus without complication, without long-term current use of insulin E11.9 Diabetes mellitus complication status: without complication Diabetes mellitus skilled nursing insulin use: without moth exterminator use
[2024-04-14] MEDS: lisinopril 2.5 mg Tablet PO (08:29)
--- NOTE | 2024-04-14 09:35 | PC.CHAP ---
Pastoral Care Encounter/Spiritual Assessment Type of Contact [] Declined bingo manager visit [] Patient/Family/Request visit [] Outpatient visit [] Follow-up visit [] Physician referral [] Code/Alert [x] Routine visit [] Staff referral [] Actively dying [] Patient sleeping [x] Family support [] [] Out of room [] Palliative care [] [] Receiving care in room [] Pre-surgical visit [] Trauma [] Long length of stay [] ICU visit [] Other: Relational/Emotional Strength [x] Patient feels connected with others/family/visitors/staff [] Distress [] Loneliness/isolation [] Abandonment Spirituality of Patient [x] Person of Jamila [] Attends Confucianist of their Jamila [x] Believes in Prayer [] Reads Bible or Scientology materials [] There are Spiritual issues to be addressed Tire Builder Operator Interventions [x] Prayer [x] Active listening [] Non-anxious presence [x] Spiritual/emotional support [] Crisis/trauma care [] Spiritual counseling [] Bereavement support [] Provided bereavement packet [] Provided Bible/devotional materials [] Provided toy/stuffed animal, coloring book to patient or family member [] Provided Communion [] Anointing/Ilion [] Salvation [x] Completed spiritual assessment [] Other: Impact on Illness or Injury [] Angry [] Fearful [] Anxious [] Often cries [] Exhaustion [] Unable to work [] Unable to attend sikhism [] Unable to walk/stand [] Unable to read [] Unable to drive [] Unable to eat/drink [] Unable to sleep [] Unable to be with family [] Patient intubated [] Other: Summary Time spent with patient 5 min
[2024-04-14 10:39] VITALS: BP 132/61; PULSE 67; RESP 18; TEMP 36.5; O2SAT 95
--- NOTE | 2024-04-14 10:45 | PC.OT ---
OT EVALUATION ORDERS RECEIVED. PATIENT D/C BEFORE EVALUATION COULD BE COMPLETED.
[2024-04-15 05:28] LABS: Glucose Point of Care 112 mg/dL (70-110)
== END 2024-04-14 09:23 | disposition home health service (06) ==
LOC: MEDSURG 09:20
PROVIDERS: Physician Assistant; Admitting Provider Student in an Organized Health Care Education/Training Program; PCP Nurse Practitioner Family; Visit Provider Student in an Organized Health Care Education/Training Program
PROC: 8E0Y0CZ Robotic Assisted Procedure of Lower Extremity, Open Approach (ICD-10-PCS; CPT 27447; principal; 2024-04-13 07:00)
DX: M17.12 Unilateral primary osteoarthritis, left knee (principal); I25.10 Atherosclerotic heart disease of native coronary artery without angina pectoris; I10 Essential (primary) hypertension; E11.9 Type 2 diabetes mellitus without complications; K21.9 Gastro-esophageal reflux disease without esophagitis; Z95.1 Presence of aortocoronary bypass graft; Z79.84 Long term (current) use of oral hypoglycemic drugs; Z79.82 Long term (current) use of aspirin; N40.0 Benign prostatic hyperplasia without lower urinary tract symptoms
CPT/HCPCS: 27447; 20985; 36415; 36416; 51702; 73562; 80048; 82962; 85025; 86850; 86900; 96372; 97110; 97116; 97161; 97530; C1776; G0378; J0131; J0171; J0690; J1815; J1885; J2001; J2371; J2704; J2795; J3010; J3370; J7120

== ENCOUNTER → 2024-04-28 08:30 | Outpatient (BNVA) | payer MEDICARE, SELFPAY | PROVIDERS: PCP Nurse Practitioner Family; Visit Provider Physician Assistant | DX: Z96.651 Presence of right artificial knee joint (principal) | CPT/HCPCS: 73560; 73565; 99024 ==

== ENCOUNTER → 2024-06-09 08:06 | Outpatient (BNVA) | payer MEDICARE, SELFPAY | PROVIDERS: PCP Nurse Practitioner Family; Visit Provider Physician Assistant | DX: Z96.651 Presence of right artificial knee joint | CPT/HCPCS: 73560; 73565; 99024 ==

== ENCOUNTER → 2024-07-07 09:01 | Outpatient (BNVA) | payer MEDICARE, SELFPAY | PROVIDERS: PCP Nurse Practitioner Family; Visit Provider Physician Assistant | DX: Z96.651 Presence of right artificial knee joint (principal) | CPT/HCPCS: 99024 ==

== ENCOUNTER → 2024-07-20 10:50 | Outpatient (BNVA) | payer MEDICARE, SELFPAY | PROVIDERS: Family Provider Nurse Practitioner Family; PCP Nurse Practitioner Family; Visit Provider Nurse Practitioner Family | DX: E11.9 Type 2 diabetes mellitus without complications (principal); I10 Essential (primary) hypertension; Z12.5 Encounter for screening for malignant neoplasm of prostate; K21.9 Gastro-esophageal reflux disease without esophagitis; N40.1 Benign prostatic hyperplasia with lower urinary tract symptoms; M17.12 Unilateral primary osteoarthritis, left knee; J32.9 Chronic sinusitis, unspecified | CPT/HCPCS: 80053; 80061; 82607; 83036; 84443; 85025; G0103 ==

== ENCOUNTER → 2024-09-30 10:27 | Outpatient (BNVA) | payer MEDICARE, SELFPAY | PROVIDERS: Family Provider Nurse Practitioner Family; PCP Nurse Practitioner Family; Visit Provider Nurse Practitioner Family | DX: E11.9 Type 2 diabetes mellitus without complications (principal); R79.89 Other specified abnormal findings of blood chemistry | CPT/HCPCS: 84439; 84443 ==

== ENCOUNTER → 2024-10-06 08:50 | Outpatient (BNVA) | payer MEDICARE, SELFPAY | PROVIDERS: Family Provider Nurse Practitioner Family; PCP Nurse Practitioner Family; Visit Provider Physician Assistant | DX: Z96.652 Presence of left artificial knee joint (principal) | CPT/HCPCS: 73560; 73565; 99213 ==

== ENCOUNTER → 2024-10-21 16:03 | Outpatient (BNVA) | payer MEDICARE, SELFPAY | PROVIDERS: Family Provider Nurse Practitioner Family; PCP Nurse Practitioner Family; Visit Provider Internal Medicine Cardiovascular Disease | DX: I10 Essential (primary) hypertension (principal); E78.5 Hyperlipidemia, unspecified; I25.10 Atherosclerotic heart disease of native coronary artery without angina pectoris; Z95.1 Presence of aortocoronary bypass graft | CPT/HCPCS: 99214 ==

== ENCOUNTER → 2025-02-23 10:52 | Outpatient (BNVA) | payer MEDICARE, SELFPAY | PROVIDERS: Family Provider Nurse Practitioner Family; PCP Nurse Practitioner Family; Visit Provider Nurse Practitioner Family | DX: E11.9 Type 2 diabetes mellitus without complications (principal); I10 Essential (primary) hypertension | CPT/HCPCS: 80053; 80061; 83036; 84443; 85025 ==

== ENCOUNTER → 2025-02-24 12:59 | Outpatient (BNVA) | payer MEDICARE, SELFPAY | PROVIDERS: Family Provider Nurse Practitioner Family; PCP Nurse Practitioner Family; Referring Provider Nurse Practitioner Family; Visit Provider Surgery | DX: K21.9 Gastro-esophageal reflux disease without esophagitis (principal); R03.0 Elevated blood-pressure reading, without diagnosis of hypertension | CPT/HCPCS: 99204 ==

== ENCOUNTER → 2025-02-25 11:15 | Outpatient (BNVA) | payer MEDICARE, SELFPAY | PROVIDERS: Family Provider Nurse Practitioner Family; PCP Nurse Practitioner Family; Visit Provider Nurse Practitioner Family | DX: R10.9 Unspecified abdominal pain (principal) | CPT/HCPCS: 82274 ==

== ENCOUNTER 2025-03-18 07:40 | Day surgery (SDC) | payer MEDICARE, SELFPAY ==
[2025-03-18 06:45] VITALS: BP 129/63; PULSE 71; RESP 16; TEMP 36.6; O2SAT 98
[2025-03-18 06:46] VITALS: BMI 22.0
--- NOTE | 2025-03-18 07:12 | ANES.PREANE2 ---
Pre-Anesthetic Assessment Height/Weight: Height 1.73 m Weight 65.771 kg Temp Pulse Resp BP Pulse Ox 97.8 F 71 16 129/63 98 03/18/25 06:45 03/18/25 06:45 03/18/25 06:45 03/18/25 06:45 03/18/25 06:45 Preop Diagnosis: difficulty swallowing Operation Date: 03/18/25 07:40 Proposed Procedures p EGD EGD with Biopsy 95743 K21.9(Not Applicable) - Reece Sánchez MD Familial anesthetic complications: none Was Beta Henna taken within 24 hours: N/A Was Clonidine taken within 24 hours: N/A Last intake: Intake Last Liquid Date 03/17/25 Last Liquid Time 22:00 Last Solid Date 03/17/25 Last Solid Time 19:00 Social No alcohol and No tobacco Exam alert, oriented x 3, clear to auscultation bilaterally and regular rate & rhythm Airway Submandibular: within normal limits Cervical ROM: within normal limits Mallampati: Class II Dentition: partials History/ROS No significant history except as noted and No significant complaints Pulmonary Exertional Dyspnea CV/HEM Coronary Artery Disease and Hypertension None reported Hepatic None reported GI Gastroesophageal Reflux Disease Abdominal pain Metabolic Diabetes Mellitus [facility] [place] None reported Neuropsych None reported Anesthetic Plan ASA status: 3 Anesthesia: MAC Risk of > 500 ml blood loss (7ml/kg in children): No Medications/Allergies Home Medications ?Medication ?Instructions ?Recorded ?Confirmed ?Last Taken ?Type glucosamine HCl 500 mg tablet 500 mg PO DAILY 09/17/22 03/15/25 03/15/25 History triamterene 37.5 1 tab PO QAM PRN swelling 09/17/22 03/18/25 03/17/25 History mg-hydrochlorothiazide 25 mg tablet levocetirizine 5 mg tablet (Xyzal) 5 mg PO DAILY #90 tabs 08/19/23 03/15/25 03/15/25 Rx dutasteride 0.5 mg capsule 0.5 mg PO BID #180 caps 09/10/24 03/15/25 03/15/25 Rx (Avodart) methocarbamol 500 mg tablet 500 mg PO TID 1 week #21 tabs 10/06/24 03/15/25 03/14/25 Rx benzonatate 100 mg capsule 100 mg PO TID PRN cough #30 caps 02/23/25 03/15/25 03/15/25 Rx pantoprazole 40 mg tablet,delayed 40 mg PO DAILY #90 tabs 02/23/25 03/15/25 03/15/25 Rx release (Protonix) azelastine 137 mcg (0.1 %) nasal 2 spray intranasal DAILY PRN 03/15/25 03/15/25 03/15/25 History spray Congestion celecoxib 100 mg capsule 100 mg PO DAILY 03/15/25 03/15/25 03/15/25 History lisinopril 2.5 mg tablet 2.5 mg PO DAILY 03/15/25 03/15/25 03/15/25 History metformin 500 mg tablet,extended 500 mg PO BID 03/15/25 03/18/25 03/17/25 History release 24 hr sucralfate 1 gram tablet 1 g PO BID 03/15/25 03/15/25 03/15/25 History tamsulosin 0.4 mg capsule 0.4 mg PO DAILY 03/15/25 03/15/25 03/15/25 History Allergies Allergy/AdvReac Type Severity Reaction Status Date / Time pravastatin (From Pravachol) Allergy Unknown Verified 03/18/25 06:41 Current Medications Generic Name Dose Route Start Last Admin Trade Name Freq PRN Reason Stop Dose Admin Sodium Chloride 1,000 mls @ 15 mls/hr 03/18/25 06:35 03/18/25 06:58 Sodium Chloride 0.9% IV 03/19/25 06:34 15 mls/hr .Q24H PRN Administration COLONOSCOPY FLUIDS PFSH Anesthesia Medical History Elevated TSH Enrolled in chronic care management Carotid stenosis HTN (hypertension) BPH (benign prostatic hyperplasia) ASHD (arteriosclerotic heart disease) Diabetes type 2, controlled Surgical History History of total right knee replacement History of laparoscopic cholecystectomy History of coronary artery bypass graft Family History Father Heart disease Mother Heart disease Social History Smoking and tobacco/nicotine status: former use of tobacco/nicotine Quit status (tobacco/nicotine): has quit using Second hand smoke exposure: No Alcohol intake: never Substance/Drug Use: never Household members: spouse Marital status: service: No Current occupational status: retired Current gender identity: Male Special olimpia needs: No Agree to transfusion: Yes Data Anesthesia Cardiac Studies: Echocardiogram 04/09/24 Sestamibi Stress Test (Cardiology) 06/25/22
--- NOTE | 2025-03-18 07:23 | W.PM.OPSUD ---
Surgery/Procedure H&P Update DATE OF PROCEDURE: March 18, 2025 DATE H&P PERFORMED: 02/24/25 H&P UPDATE INFORMATION: I have reviewed H&P completed within last 30 days, I have examined patient prior to procedure, No changes to prior documentation, H&P is in [facility] EMR on date indicated and Risks and benefits of the procedure reviewed PREOP DIAGNOSIS: difficulty swallowing PLANNED PROCEDURE: Operation Date: 03/18/25 07:40 Proposed Procedures p EGD EGD with Biopsy 01590 K21.9(Not Applicable) - Reece Sánchez MD
[2025-03-18 07:53] VITALS: BP 103/53; PULSE 87; RESP 18; TEMP 36.4; O2SAT 98
[2025-03-18 08:12] VITALS: BP 123/71; PULSE 78; RESP 18; O2SAT 98
--- NOTE | 2025-03-18 08:30 | ANE.PACU2 ---
Inpatient post-anesthesia follow up: Airway intact: Yes Vital signs: Temperature 97.6 F Pulse Rate 78 Respiratory Rate 18 Blood Pressure 123/71 Pulse Oximetry 98 Oxygen Delivery Me thod Room Air Oxygen Flow Rate 4 Fraction of Inspir ed Oxygen Hydration adequate: Yes Nausea and vomiting: No Pain level: 1 Mental status: Baseline
== END 2025-03-18 08:31 | disposition home or self-care (01) ==
LOC: GILAB 08:42
PROVIDERS: PCP Nurse Practitioner Family; Visit Provider Surgery
PROC: 0DJ08ZZ Inspection of Upper Intestinal Tract, Via Natural or Artificial Opening Endoscopic (ICD-10-PCS; principal; 2025-03-18 07:40)
DX: R10.9 Unspecified abdominal pain (principal); R12 Heartburn; R13.10 Dysphagia, unspecified; K44.9 Diaphragmatic hernia without obstruction or gangrene; K29.50 Unspecified chronic gastritis without bleeding; K31.7 Polyp of stomach and duodenum; I25.10 Atherosclerotic heart disease of native coronary artery without angina pectoris; I10 Essential (primary) hypertension; K21.9 Gastro-esophageal reflux disease without esophagitis; E11.9 Type 2 diabetes mellitus without complications; Z79.84 Long term (current) use of oral hypoglycemic drugs; Z87.891 Personal history of nicotine dependence
CPT/HCPCS: 43251; 88305; J2704; J7030; J9999

== ENCOUNTER → 2025-04-13 08:28 | Outpatient (BNVA) | payer MEDICARE, SELFPAY | PROVIDERS: PCP Nurse Practitioner Family; Visit Provider Student in an Organized Health Care Education/Training Program | DX: Z47.1 Aftercare following joint replacement surgery (principal); Z96.652 Presence of left artificial knee joint | CPT/HCPCS: 73560; 73565; 99213 ==